=== PATIENT | female | born 1945 | race Caucasian/White ===

== ENCOUNTER → 2017-10-14 09:02 | Outpatient (CLI) | payer MEDICARE, BC, SELFPAY ==
--- NOTE | 2017-10-14 09:19 | XR_ITS ---
XR foot wt bearing RT 3V HISTORY: ITS.REASON: pain ORDERING PHYSICIAN: Risa Nicole DPM PATIENT AGE: 72 years COMPARISON: None FINDINGS: No fracture or dislocation. No lytic or blastic change. There is normal mineralization.. The joint spaces are well-preserved. No significant degenerative/arthritic changes. No erosive changes evident. Normal alignment. There is a small calcaneal spur at 6 mm IMPRESSION: Small calcaneal spur otherwise negative right foot
--- NOTE | 2017-10-14 09:19 | XR_ITS ---
XR foot wt bearing LT 3V HISTORY: ITS.REASON: pain ORDERING PHYSICIAN: Risa Nicole DPM PATIENT AGE: 72 years COMPARISON: None FINDINGS: No fracture or dislocation. No lytic or blastic change. There is normal mineralization.. The joint spaces are well-preserved. No significant degenerative/arthritic changes. No erosive changes evident. 4 mm calcaneal spur IMPRESSION: Small calcaneal spur otherwise negative left foot
== END ==
PROVIDERS: PCP Family Medicine; Visit Provider Podiatrist
DX: M79.672 Pain in left foot (principal); M72.2 Plantar fascial fibromatosis
CPT/HCPCS: 73630

== ENCOUNTER → 2017-11-16 14:37 | Outpatient (CLI) | payer MEDICARE, BC, SELFPAY ==
[2017-11-16 16:57] LABS: Free T4 (Free Thyroxine) 0.82 ng/dl (0.76-1.46); Free Thyroxine Index 1.9 ug/dL (5.93-13.13); T4 (Thyroxine) 5.8 ug/dl (4.7-13.3); Thyroid Stimulating Hormone 1.17 uIU/ml (0.358-3.740); Triiodothryronine (T3) Uptake 33 % (31-39)
== END ==
PROVIDERS: Visit Provider Otolaryngology
DX: E01.0 Iodine-deficiency related diffuse (endemic) goiter (principal)
CPT/HCPCS: 36415; 84436; 84439; 84443; 84479

== ENCOUNTER → 2017-11-20 15:03 | Outpatient (CLI) | payer MEDICARE, BC, SELFPAY ==
--- NOTE | 2017-11-20 15:04 | US_ITS ---
ULTRASOUND THYROID HISTORY: Thyroid enlarged PROCEDURE: Multiple sagittal and transverse ultrasound images of the thyroid. COMPARISON: None ----- FINDINGS: RIGHT LOBE: 4 cm length X 1.5 cm. x0.8 cm Right thyroid nodule Nodule A:Solid nodule mid right lobe measuring6.4 mm x4.7 mm Nodule B: Solid nodule lower right lobe 7.5 mm length x 5.8 mm x 5 mm AP Nodule C: LEFT LOBE: 3.9 cm x 1.4 cm.x0.9 cm No nodules evident on the left lobe: ISTHMUS:. Normal thickness and appearance measuring just over 2 mm. . no nodules at the isthmus ------ IMPRESSION: Thyroid gland upper normal in size bilaterally 2 small solid Right lobe thyroid nodules.. Left lobe and isthmus unremarkable
== END ==
PROVIDERS: PCP Family Medicine; Visit Provider Otolaryngology
DX: E04.1 Nontoxic single thyroid nodule (principal)
CPT/HCPCS: 76536

== ENCOUNTER 2017-12-15 14:30 | Outpatient (RCR) | payer MEDICARE, BC, SELFPAY | END 2017-12-16 14:31 | disposition home or self-care (01) | LOC: PT 14:30 | PROVIDERS: PCP Family Medicine; Visit Provider Podiatrist | DX: M72.2 Plantar fascial fibromatosis (principal); M79.672 Pain in left foot | CPT/HCPCS: 97010; 97014; 97033; 97035; 97110; 97140; 97163; G0283 ==

== ENCOUNTER → 2018-04-19 08:14 | Outpatient (CLI) | payer MEDICARE, BC, SELFPAY ==
[2018-04-19 10:11] LABS: Anion Gap 12.1 mEq/L (5-15); Blood Urea Nitrogen 12 mg/dL (7-18); Calcium 9.3 mg/dL (8.5-10.1); Carbon Dioxide 30 mmol/L (21.0-32.0); Chloride 106 mmol/L (98-107); Creatinine,Serum 0.81 mg/dL (0.55-1.02); Estimated Glomerular Filt Rate 70 ml/min (>60); GFR (African American) 85 ML/MIN (>60); Glucose 94 mg/dL (74-106); Potassium 5.1 mmoL/L (3.5-5.1); Sodium 143 mmol/L (136-145)
== END ==
PROVIDERS: PCP Family Medicine; Visit Provider Ophthalmology
DX: J45.909 Unspecified asthma, uncomplicated (principal); I10 Essential (primary) hypertension
CPT/HCPCS: 36415; 80048; 93005

== ENCOUNTER → 2018-05-24 13:49 | Outpatient (CLI) | payer MEDICARE, BC, SELFPAY ==
--- NOTE | 2018-05-24 13:51 | US_ITS ---
US thyroid HISTORY: Follow-up thyroid nodules ITS.REASON: goiter ORDERING PHYSICIAN: Boni Tilley MD PATIENT AGE: 72 years Comparison: 11/20/2017 FINDINGS: Right lobe: 3.9 x 1 x 1.8 cm Nodule A: 5 x 5 mm mid polar region unchanged. Nodule B: 7 x 6 mm isoechoic nodule lower pole unchanged Left lobe: 4.1 x 1.0 x 1.5 cm Isthmus: Unremarkable IMPRESSION: No change right-sided thyroid nodule with low level of suspicion for malignancy
== END ==
PROVIDERS: PCP Family Medicine; Visit Provider Otolaryngology
DX: E04.9 Nontoxic goiter, unspecified (principal)
CPT/HCPCS: 76536

== ENCOUNTER → 2018-08-31 13:44 | Outpatient (POV) | payer MEDICARE, BC, SELFPAY | PROVIDERS: Visit Provider Dermatology | DX: Z00.00 Encounter for general adult medical examination without abnormal findings (principal) ==

== ENCOUNTER → 2018-09-21 09:05 | Outpatient (POV) | payer MEDICARE, BC, SELFPAY | PROVIDERS: Visit Provider Dermatology | DX: Z00.00 Encounter for general adult medical examination without abnormal findings (principal) ==

== ENCOUNTER → 2019-01-11 09:41 | Outpatient (POV) | payer MEDICARE, BC, SELFPAY | PROVIDERS: Visit Provider Dermatology | DX: Z00.00 Encounter for general adult medical examination without abnormal findings (principal) ==

== ENCOUNTER → 2019-03-31 09:57 | Outpatient (CLI) | payer MEDICARE, BC, SELFPAY ==
--- NOTE | 2019-03-31 10:14 | XR_ITS ---
PROCEDURE: XR DEXA AXIAL SKELETON CLINICAL HISTORY: POST MENOPAUSAL,OSTEOPENIA COMPARISON: No exams were available for comparison FINDINGS: Lumbar spine density not obtained due to metallic hardware. Radius 33 percent is 0.745 grams/centimeters sq with a T-score -1.6. Left femoral neck density is 0.771 grams/centimeters sq with T-score -1 point. IMPRESSION: Osteopenia with moderate fracture risk. Treatment advised. Suggest follow-up exam March 2021 Dictated by: Dk Arteaga MD 03/31/2019 15:49 Electronically signed by Dk Arteaga MD in [facility] 03/31/2019 15:49
== END ==
PROVIDERS: PCP Family Medicine; Visit Provider Family Medicine
DX: Z78.0 Asymptomatic menopausal state (principal); M85.80 Other specified disorders of bone density and structure, unspecified site
CPT/HCPCS: 77080

== ENCOUNTER → 2019-03-31 09:59 | Outpatient (CLI) | payer SELFPAY | PROVIDERS: PCP Family Medicine; Visit Provider Family Medicine | DX: Z13.6 Encounter for screening for cardiovascular disorders (principal) ==

== ENCOUNTER → 2019-04-01 07:16 | Outpatient (CLI) | payer SELFPAY ==
--- NOTE | 2019-04-01 07:17 | CT_ITS ---
PROCEDURE: CT HEART W CALCIUM SCORE CLINICAL HISTORY: FX HX HEART DISEASE, CALCIUM SCREENING COMPARISON: No exams were available for comparison TECHNIQUE: Axial images obtained with sagittal and coronal reformats. All CT scans at the facility use one or more dose reduction, viz: automated exposure control, ma/kV adjustment per patient size (including targeted exams where dose is matched to indication, i.e. head), or iterative reconstruction technique. FINDINGS: Coronary artery calcium score is 2 minimal calcific plaque burden and low cardiovascular disease risk. Incidental findings include mild thickening of the pericardium posteriorly suggesting a small pericardial effusion. There is evidence of old granulomatous disease. There are atelectatic changes lung bases. IMPRESSION: Minimal calcific plaque burden with low cardiovascular disease risk Small pericardial effusion Dictated by: Dk Arteaga MD 04/01/2019 17:49 Electronically signed by Dk Arteaga MD in [facility] 04/01/2019 17:49
== END ==
PROVIDERS: PCP Family Medicine; Visit Provider Internal Medicine Cardiovascular Disease
DX: Z13.6 Encounter for screening for cardiovascular disorders (principal)
CPT/HCPCS: 75571

== ENCOUNTER → 2019-09-08 10:02 | Outpatient (CLI) | payer MEDICARE, BC, SELFPAY ==
--- NOTE | 2019-09-08 10:07 | XR_ITS ---
PROCEDURE: XR RIBS RT MIN 3V W CXR1V CLINICAL INDICATION: RT RIB PAIN COMPARISON: No exams were available for comparison FINDINGS: Frontal view of the chest shows no acute finding. Multiple views of the right ribs are obtained. There is a curvilinear lucency in the lateral aspect of the right 10th rib suggesting a nondisplaced fracture. No other significant anomalies are evident. IMPRESSION: No acute findings. Possible nondisplaced right 10th rib fracture Dictated by: Dk Arteaga MD 09/08/2019 11:42 Electronically signed by Dk Arteaga MD in [facility] 09/08/2019 11:42
== END ==
PROVIDERS: PCP Family Medicine; Visit Provider Family Medicine
DX: R07.81 Pleurodynia (principal)
CPT/HCPCS: 71101

== ENCOUNTER → 2020-12-07 07:36 | Outpatient (CLI) | payer MEDICARE, BC, SELFPAY ==
--- NOTE | 2020-12-07 07:44 | MM_ITS ---
PROCEDURE: MM DIG SCREENING MAMM BI W/CAD Digital Breast Tomosynthesis Included CLINICAL INDICATION: SCREENING COMPARISON: MG DMSB DIG MAMM-SCREEN JAMAAL from 06/08/2013 MG DMSB DIG MAMM-SCREEN JAMAAL from 07/07/2014 MG DMSB DIG MAMM-SCREEN JAMAAL from 08/31/2015 MG DMSB DIG MAMM-SCREEN JAMAAL W/CAD from 10/01/2016 TECHNIQUE: Standard CC and MLO images and 3D Tomosynthesis was obtained. R2 CAD reviewed. FINDINGS: Average fibroglandular tissue. The right breast has an unremarkable appearance. Small cluster of calcifications are noted in the axillary portion of the left breast which appear benign. These are probably benign. There is a cluster calcifications in the central aspect of the left breast. These are not significantly changed. No malignant appearing mass or malignant-appearing microcalcification. IMPRESSION: Benign findings. BI-RAD Category: 2 Benign Finding FOLLOW-UP: 1 YR 1 Year Follow-up (A letter has been sent to the patient regarding results of the study.) Dictated by: Dk Arteaga MD 12/14/2020 16:32 Dk Arteaga MD in [facility] 12/14/2020 16:32
== END ==
PROVIDERS: PCP Family Medicine; Visit Provider Family Medicine
DX: Z12.31 Encounter for screening mammogram for malignant neoplasm of breast (principal)
CPT/HCPCS: 77063; 77067

== ENCOUNTER → 2021-01-11 15:07 | Outpatient (CLI) | payer MEDICARE, BC, SELFPAY ==
--- NOTE | 2021-01-11 15:14 | XR_ITS ---
PROCEDURE: XR KUB CLINICAL INDICATION: kidney stone COMPARISON: No exams were available for comparison FINDINGS: Gas pattern-The bowel gas pattern is unremarkable. No obvious obstruction. Calcifications-there are 2 small calcifications just inferior to the transverse process of L1 near the expected location of the right renal pelvis. The largest measures approximately 3 mm. Couple of loops air-filled small bowel partially obscure the left renal shadow. There are no suspicious calcifications seen along the course of either ureter. Metallic brackets and pedicle screws are seen fusing L4 and L5.. IMPRESSION: Possible tiny calcifications within the right renal pelvis Dictated by: Dr. Maximino Grace MD 01/11/2021 15:47 Dr. Maximino Grace MD in [facility] 01/11/2021 15:47
== END ==
PROVIDERS: PCP Family Medicine; Visit Provider Urology
DX: N20.0 Calculus of kidney (principal)
CPT/HCPCS: 74018

== ENCOUNTER → 2021-01-15 12:53 | Outpatient (CLI) | payer MEDICARE, BC, SELFPAY ==
--- NOTE | 2021-01-15 12:57 | XR_ITS ---
PROCEDURE: XR KUB CLINICAL INDICATION: ureteral stone COMPARISON: CR XR KUB from 01/11/2021 FINDINGS: Small bilateral renal calculi are present measuring up to 4 mm on both sides. There are multiple pelvic calcifications which are felt to be due to phleboliths. 4 mm calculus once again noted in the region of the right renal pelvis. To the right the L3-L4 interspace there is a small 3 mm density which could be due to small ureteral stone. Postsurgical changes are present at L4-5. IMPRESSION: No change bilateral nephrolithiasis. Possible right mid ureteral stone. Dictated by: Dk Arteaga MD 01/15/2021 13:35 Dk Arteaga MD in [facility] 01/15/2021 13:35
--- NOTE | 2021-01-15 14:09 | CT_ITS ---
PROCEDURE: CT ABDOMEN PELVIS WO CON CLINICAL INDICATION: ureteral stone Follow-up ureteral stent COMPARISON: No exams were available for comparison TECHNIQUE: Axial images obtained with sagittal and coronal reformats. All CT scans at the facility use one or more dose reduction, viz: automated exposure control, ma/kV adjustment per patient size (including targeted exams where dose is matched to indication, i.e. head), or iterative reconstruction technique. FINDINGS: LOWER THORAX: 4 mm noncalcified nodules present in the right posterior costophrenic sulcus medially. Minimal atelectatic or fibrotic changes are present in the lung bases. There is mild pericardial thickening ABDOMEN & PELVIS: There is a well-circumscribed area of decreased density involving the left hepatic lobe segment 4b which may represent a hepatic cyst. There is mild generalized fatty liver. Gallbladder wall appears slightly thickened with some areas of slight decreased density in the gallbladder which could be due to stones. The spleen, adrenal glands, pancreas, and right kidney have an unremarkable appearance. There is some coarse calcification along the posterior aspect of the common bile duct suggesting small partially calcified lymph nodes. There is a 5 mm stone in the upper and lower pole of the left kidney. 15 mm area of decreased attenuation in the mid aspect of the left kidney suggesting a cyst. There is a 6 mm thin calcific density at the right ureterovesical junction with minimal ectasia of the distal aspect of the right ureter. No intestinal obstruction or free air. Prior appendectomy. Mild thickening of the colon which may only be due to nondistention versus mild colitis. Please correlate with clinical parameters. There has been a prior hysterectomy. Postsurgical changes noted of the lower lumbar spine at L4-5 with inter pedicular screws. IMPRESSION: 6 x 2 mm right ureterovesical junction stone with only minimal ectasia of the right ureter. Left nephrolithiasis. 1.9 cm hypodensity left hepatic lobe segment 4B which may represent a hepatic cyst Dictated by: Dk Arteaga MD 01/15/2021 15:53 Dk Arteaga MD in [place] 01/15/2021 15:53
== END ==
PROVIDERS: PCP Family Medicine; Visit Provider Urology
DX: N20.1 Calculus of ureter (principal)
CPT/HCPCS: 74018; 74176

== ENCOUNTER → 2021-06-07 08:45 | Outpatient (CLI) | payer MEDICARE, BC, SELFPAY ==
--- NOTE | 2021-06-07 08:48 | XR_ITS ---
FINAL REPORT TECHNIQUE: Bone densitometry calculations of the left forearm and left hip were obtained. CLINICAL HISTORY: . post menopausal FINDINGS: Using the left forearm the bone mineral density of the distal 3rd of the left radius is 0.564 g/cm2, corresponding to T-score of -2.2. Using the left hip, the bone mineral density of the femoral neck is 0.626 g/cm2, corresponding to a T-score of -2.0. NOTE: T-score: Standard deviation compared with peak bone mass of young adult mean. *Following the recommendations of the International Society of Bone densitometry, classification of hip BMD is based on the lower of two T-scores; total hip or femoral neck. IMPRESSION: Diminished bone mineral density of the left forearm and left hip consistent with osteopenia. Reviewed, Interpreted and Dictated by Conor Moran MD Transcribed by Carmen Chavez Authenticated by Conor Moran MD on 06/07/2021 10:23:43 AM [facility]
== END ==
PROVIDERS: PCP Family Medicine; Visit Provider Family Medicine
DX: M81.0 Age-related osteoporosis without current pathological fracture (principal)
CPT/HCPCS: 77080

== ENCOUNTER → 2022-02-14 08:35 | Outpatient (CLI) | payer MEDICARE, BC, SELFPAY ==
[2022-02-14 08:50] LABS: MANUAL DIFFERENTIAL MANUAL DIFFERENTIAL (MANUAL DIFF); Microscopic, Urine URINE MICROSCOPIC (MICROSCOPIC)
[2022-02-14 09:38] LABS: Appearance,Urine CLEAR (Clear); Bilirubin,Urine Negative (Negative); Blood, Urine 3+ (Negative); Color,Urine YELLOW (Yellow); Glucose,Urine (UA) Negative (Negative); Ketones,Urine Negative (Negative); Leukocyte Esterase,Urine Negative (Negative); Nitrate,Urine Negative (Negative); Protein,Urine Negative (Negative); Specific Gravity, Urine 1.025 (1.005-1.030); Urobilinogen,Urine 0.2 EU/dl (0.2)
[2022-02-14 10:03] LABS: Basophils % 0.5 % (0.1-2.0); Eosinophils # 0.1 K/mm3 (0.0-0.4); Lymphocytes # 1.5 K/mm3 (0.7-4.5); Lymphocytes % 22.2 % (10-50); Mean Corpuscular HGB Conc 31.2 g/dL (31.8-35.4); Mean Corpuscular Hemoglobin 30.6 pg (27.0-31.2); Mean Corpuscular Volume 98.2 fl (81-99); Mean Platelet Volume 8.2 fl (7.4-10.4); Monocytes # 0.3 K/mm3 (0.1-1.0); Monocytes % 4.5 % (1.7-9.3); Neutrophils # 4.7 K/mm3 (1.8-7.8); Neutrophils % 70.8 % (37.0-80.0); Platelet Count 250 K/mm3 (142-424); Red Blood Count 4.89 M/mm3 (4.20-5.40); Red Cell Distribution Width 12.8 % (11.5-17.5); White Blood Count 6.6 K/mm3 (4.8-10.8)
[2022-02-14 10:13] LABS: Alanine Aminotransferase 22 U/L (12-78); Albumin Level 4.2 g/dl (3.5-5.0); Albumin/Globulin Ratio 1.8 (1.1-1.8); Alkaline Phosphatase 78 U/L (38-126); Anion Gap 13.3 mEq/L (5-15); Aspartate Amino Transferase 27 U/L (14-36); Bilirubin,Total 0.7 mg/dl (0.2-1.3); Blood Urea Nitrogen 15 mg/dl (7-17); Calcium 9.3 mg/dl (8.4-10.2); Carbon Dioxide 27 mmol/L (22.0-30.0); Chloride 103 mmol/L (98-107); Estimated Glomerular Filt Rate 70 ml/min (>60); GFR (African American) 85 ML/MIN (>60); Globulin 2.3 g/dL (1.3-3.2); Glucose 98 mg/dl (74-100); HDL Cholesterol 93 mg/dl (40-60); Potassium 4.3 mmoL/L (3.5-5.1); Sodium 139 mmol/L (136-145); Total Protein,Serum 6.5 g/dl (6.3-8.2); Uric Acid 5.4 mg/dl (2.5-6.2)
[2022-02-14 10:14] LABS: Bacteria,Urine Trace /lpf
[2022-02-14 10:27] LABS: Direct LDL Cholesterol 79.74 mg/dL (100-129)
[2022-02-14 10:39] LABS: Anisocytosis 1+; Lymphocytes % 17 % (10-50); Macrocytosis 1+; Monocytes % 1 % (2-9); Neutrophils % 82 % (42-76); Ovalocytes 1+; Platelet Estimate Normal; Total Cells Counted 100
[2022-02-14 10:40] LABS: Erythrocyte Sedimentation Rate 2 mm/hr (0-30)
[2022-02-14 11:06] LABS: Vitamin B12 405 pg/mL (239-931)
[2022-02-14 12:05] LABS: Cholesterol 185 mg/dl (140-200); Triglycerides 91 mg/dl (30-150); VLDL Cholesterol 18 mg/dL (0-40)
[2022-02-15 09:17] LABS: RA Latex Turbid. <10.0 IU/mL (<14.0)
[2022-02-19 10:28] LABS: Antinuclear Antibodies, IFA Negative (.)
[2022-02-21 20:28] LABS: 1,25 Dihydroxy Vitamin D 47 pg/mL (.); 1,25-Dihydroxy, Vitamin D-2 <10 pg/mL (.); 1,25-Dihydroxy, Vitamin D-3 46 pg/mL (.)
== END ==
PROVIDERS: PCP Family Medicine; Visit Provider Family Medicine
DX: I10 Essential (primary) hypertension (principal); M19.90 Unspecified osteoarthritis, unspecified site; R53.83 Other fatigue; F32.A Depression, unspecified; M85.80 Other specified disorders of bone density and structure, unspecified site
CPT/HCPCS: 36415; 80053; 80061; 81001; 82607; 82652; 84443; 84550; 85007; 85014; 85018; 85048; 85049; 85651; 86038; 86431

== ENCOUNTER → 2022-02-24 13:12 | Outpatient (CLI) | payer MEDICARE, BC, SELFPAY ==
--- NOTE | 2022-02-24 13:13 | MM_ITS ---
PROCEDURE INFORMATION: Exam: MG Bilateral Screening 3D Mammography Exam date and time: 02/24/2022 1:07 PM Age: 76 years old Clinical indication: Screening examination. Her mother had breast cancer in her 60s. TECHNIQUE: Imaging protocol: Bilateral Screening tomosynthesis and 2D mammography including computer-aided detection (CAD) when performed. COMPARISON: 1. MG MM DIG SCREENING MAMM BI W/CAD 12/07/2020 8:00 AM 2. MG DMSB DIG MAMM-SCREEN JAMAAL W/CAD 10/01/2016 9:51 AM 3. MG DMSB DIG MAMM-SCREEN JAMAAL 08/31/2015 10:12 AM FINDINGS: MAMMOGRAPHY: Breast composition: There are scattered areas of fibroglandular density. Mass: None. Architectural distortion: None. Calcifications: No suspicious calcifications. Asymmetric density: None. Skin thickening: None. Axillary adenopathy: None. IMPRESSION: No mammographic evidence of malignancy. Annual screening is recommended unless otherwise clinically indicated. ASSESSMENT: BI-RADS Category 1: Negative
== END ==
PROVIDERS: PCP Family Medicine; Visit Provider Family Medicine
DX: Z12.31 Encounter for screening mammogram for malignant neoplasm of breast (principal)
CPT/HCPCS: 77063; 77067

== ENCOUNTER → 2022-05-28 20:04 | Outpatient (CLI) | payer MEDICARE, BC, SELFPAY ==
[2022-06-02 17:51] LABS: Occult Blood,Stool Negative (Negative)
== END ==
PROVIDERS: PCP Family Medicine; Visit Provider Family Medicine
DX: Z12.11 Encounter for screening for malignant neoplasm of colon (principal); Z80.0 Family history of malignant neoplasm of digestive organs
CPT/HCPCS: 82272; G0328

== ENCOUNTER → 2022-05-30 07:17 | Outpatient (CLI) | payer SELFPAY ==
--- NOTE | 2022-05-30 07:31 | CT_ITS ---
FINAL REPORT TECHNIQUE: Thin-section axial images were obtained through the heart and coronary arteries per CT coronary calcium score protocol. The study was performed with techniques to keep radiation doses as low as reasonably achievable (ALARA). Individual dose reduction technique using automated exposure control adjustment of mA and/or kv according to the patient's size were employed. CLINICAL HISTORY: calcium score COMPARISON: none FINDINGS: On the axial images, there is calcification within the left anterior descending coronary artery. This gives a coronary artery calcium score of 7.75 based on the Agatston scale. The coronary artery calcium score places the patient within the 14th percentile based on age and gender. The heart size is normal. There is a small pericardial effusion. No pleural effusion. Limited evaluation of the lungs reveals no suspicious nodule. IMPRESSION: Calcium score of 7.75 which places the patient at the 14th percentile for gender and age. Reviewed, Interpreted and Dictated by Kinsey Salazar MD Transcribed by Nancy Mcfarland Authenticated and [facility]
== END ==
PROVIDERS: PCP Family Medicine; Visit Provider Internal Medicine Cardiovascular Disease
DX: R94.31 Abnormal electrocardiogram [ECG] [EKG] (principal); R06.00 Dyspnea, unspecified; R06.83 Snoring; R53.83 Other fatigue
CPT/HCPCS: 75571

== ENCOUNTER → 2022-05-30 07:24 | Outpatient (CLI) | payer MEDICARE, BC, SELFPAY ==
--- NOTE | 2022-05-30 07:25 | CA_ITS ---
APPROVED REPORT EXAM: Comprehensive 2D, Doppler, and color-flow Echocardiogram Bundle Tier And Labeler: Dulce Russo CRT Ht: 5 ft 5 in Wt: 172lbs BSA: 1.86 BP: 155/68 mmHg Indications: Abnormal ECG, Shortness of Breath, Palpitations, Fatigue, Hypertension/HDD 2D Dimensions LVOT 1.70 cm (M/F) 1.5-2.5 M-Mode Dimensions RVDd 2.07 cm (0.9-2.6) LA Diam 3.84 cm (1.9-4.0) LVDd 4.18 cm (3.5-5.7) Ao Diam 3.32 cm (2.0-3.7) LVDs 2.61 cm (3.5-5.7) IVSd 1.21 cm (0.6-1.1) PWd 0.68 cm (0.6-1.1) EF (Teich) 68.10% FS 37.60% EDV (Teich) 77.70 mL TAPSE 1.69 (<1.7) ESV (Teich) 24.80 mL LV Diastology MED E' 7.50 (< 7 cm/sec) MED A' 9.80 cm/s LAT E' 83.30 (<10 cm/sec) LAT A' 72.50 cm/s Aortic Valve AI PHT 503.00 ms Pulmonary Valve PV Peak Velocity 140.00 (50-150 cm/s) Tricuspid Valve TR P. Velocity 210.00 cm/s RAP Estimate 10.00 mmHg RVSP 27.70 mmHg Left Ventricle Left atrium is mildly enlarged, left ventricle is normal size, mild concentric left ventricular hypertrophy, estimated ejection fraction 55% with no regional wall motion abnormality. Grade 1 diastolic dysfunction seen without tissue Doppler evidence of raise left atrial pressure. Right Ventricle Right atrium and right ventricle are normal size and contractility. Aortic Valve Aortic valve is minimally thickened and fibrosed there is no aortic stenosis, there is trace aortic insufficiency. Mitral Valve Mitral valve grossly normal, there is trace mitral regurgitation. Tricuspid Valve Tricuspid grossly normal, there is trace tricuspid regurgitation, tricuspid regurgitation jet velocity is inadequate for calculation of the right ventricular systolic pressure. Pulmonic Valve Pulmonic valve is poorly visualized. Great Vessels Aortic root is normal size. Inferior vena cava is poorly visualized. Pericardium Trivial pericardial effusion noted. Conclusion 1. Normal left ventricular size, mild concentric left ventricular hypertrophy, estimated ejection fraction 55% with no regional wall motion abnormality, grade 1 diastolic dysfunction seen without tissue Doppler evidence of raise left atrial pressure. 2. Trace aortic, mitral and tricuspid regurgitation. 3. Trivial pericardial effusion noted. 4. Inferior vena cava is poorly visualized. Electronically signed by : Anjel Costa MD 05/30/2022 17:40:06
[2022-05-30 11:00] LABS: Anion Gap 10.3 mEq/L (5-15); Blood Urea Nitrogen 17 mg/dl (7-17); Carbon Dioxide 29 mmol/L (22.0-30.0); Chloride 103 mmol/L (98-107); Estimated Glomerular Filt Rate 70 ml/min (>60); GFR (African American) 85 ML/MIN (>60); Glucose 87 mg/dl (74-100); Potassium 4.3 mmoL/L (3.5-5.1); Sodium 138 mmol/L (136-145)
[2022-05-30 11:10] LABS: NT Pro Brain Natriuretic Pep. 179 pg/mL (0-450)
== END ==
PROVIDERS: PCP Family Medicine; Visit Provider Internal Medicine Cardiovascular Disease
DX: I10 Essential (primary) hypertension (principal); R06.00 Dyspnea, unspecified; R06.83 Snoring; R53.83 Other fatigue; R93.1 Abnormal findings on diagnostic imaging of heart and coronary circulation; R94.31 Abnormal electrocardiogram [ECG] [EKG]
CPT/HCPCS: 36415; 80048; 83880; 93306

== ENCOUNTER → 2022-05-30 20:07 | Outpatient (CLI) | payer MEDICARE, BC, SELFPAY ==
[2022-06-02 17:51] LABS: Occult Blood,Stool Negative (Negative)
== END ==
PROVIDERS: PCP Family Medicine; Visit Provider Family Medicine
DX: Z12.11 Encounter for screening for malignant neoplasm of colon (principal); Z80.0 Family history of malignant neoplasm of digestive organs
CPT/HCPCS: 82272; G0328

== ENCOUNTER → 2022-06-02 17:55 | Outpatient (CLI) | payer MEDICARE, BC, SELFPAY ==
[2022-06-02 17:50] LABS: Occult Blood,Stool Negative (Negative)
== END ==
PROVIDERS: Visit Provider Family Medicine
DX: Z12.11 Encounter for screening for malignant neoplasm of colon (principal); Z80.0 Family history of malignant neoplasm of digestive organs
CPT/HCPCS: 82272; G0328

== ENCOUNTER → 2022-06-09 13:07 | Outpatient (CLI) | payer MEDICARE, BC, SELFPAY | PROVIDERS: PCP Family Medicine; Visit Provider Internal Medicine Cardiovascular Disease | DX: G47.30 Sleep apnea, unspecified (principal); R06.00 Dyspnea, unspecified; R53.83 Other fatigue; R94.31 Abnormal electrocardiogram [ECG] [EKG] | CPT/HCPCS: G0399 ==

== ENCOUNTER → 2022-08-21 10:09 | Outpatient (CLI) | payer MEDICARE, BC, SELFPAY ==
[2022-08-21 11:15] LABS: Basophils % 0.6 % (0.1-2.0); Eosinophils # 0.2 K/mm3 (0.0-0.4); Eosinophils % 2.1 % (0.1-12.0); Hematocrit 44.4 % (37.0-47.0); Hemoglobin 14.7 g/dL (12.2-16.2); Lymphocytes # 1.7 K/mm3 (0.7-4.5); Lymphocytes % 22.9 % (10-50); Mean Corpuscular HGB Conc 33.1 g/dL (31.8-35.4); Mean Corpuscular Hemoglobin 31.7 pg (27.0-31.2); Mean Corpuscular Volume 95.8 fl (81-99); Monocytes # 0.3 K/mm3 (0.1-1.0); Neutrophils # 5.2 K/mm3 (1.8-7.8); Neutrophils % 70.3 % (37.0-80.0); Platelet Count 205 K/mm3 (142-424); Red Blood Count 4.64 M/mm3 (4.20-5.40); Red Cell Distribution Width 13.3 % (11.5-17.5); White Blood Count 7.4 K/mm3 (4.8-10.8)
[2022-08-21 11:33] LABS: Alanine Aminotransferase 25 U/L (12-78); Albumin/Globulin Ratio 1.8 (1.1-1.8); Alkaline Phosphatase 63 U/L (38-126); Aspartate Amino Transferase 29 U/L (14-36); Bilirubin,Total 1.3 mg/dl (0.2-1.3); Blood Urea Nitrogen 20 mg/dl (7-17); Calcium 8.9 mg/dl (8.4-10.2); Carbon Dioxide 30 mmol/L (22.0-30.0); Chloride 102 mmol/L (98-107); Chol/HDL Ratio 1.5 (1-3.5); Cholesterol 121 mg/dl (140-200); Estimated Glomerular Filt Rate 61 ml/min (>60); GFR (African American) 74 ML/MIN (>60); Globulin 2.2 g/dL (1.3-3.2); Glucose 96 mg/dl (74-100); HDL Cholesterol 82 mg/dl (40-60); Sodium 134 mmol/L (136-145); Total Protein,Serum 6.2 g/dl (6.3-8.2); Triglycerides 66 mg/dl (30-150); VLDL Cholesterol 13 mg/dL (0-40)
[2022-08-21 11:44] LABS: Direct LDL Cholesterol 30.04 mg/dL (100-129)
[2022-08-21 11:51] LABS: 25-OH Vitamin D, Total 38.6 ng/mL (30-100)
[2022-08-21 12:03] LABS: Thyroid Stimulating Hormone 1.18 uIU/mL (0.465-4.68)
[2022-08-21 12:22] LABS: Vitamin B12 453 pg/mL (239-931)
== END ==
PROVIDERS: PCP Family Medicine; Visit Provider Family Medicine
DX: I10 Essential (primary) hypertension (principal); R93.1 Abnormal findings on diagnostic imaging of heart and coronary circulation; M85.80 Other specified disorders of bone density and structure, unspecified site; R53.83 Other fatigue
CPT/HCPCS: 36415; 80053; 80061; 82306; 82607; 84443; 85025

== ENCOUNTER → 2023-01-13 09:50 | Outpatient (CLI) | payer MEDICARE, BC, SELFPAY ==
--- NOTE | 2023-01-13 10:02 | ECG_ITS ---
APPROVED REPORT Exam: Resting ECG HR:76 bpm ECG Measurements Heart Rate 76 AXES NH 128 P 47 QRSd 84 QRS 9 QT 367 T 47 QTc 398 Conclusion SINUS RHYTHM LOW QRS VOLTAGE IN PRECORDIAL LEADS [QRS DEFLECTION < 1.0 mV IN CHEST LEADS] NONSPECIFIC ST & T-WAVE ABNORMALITY BORDERLINE ECG UNCONFIRMED REPORT Electronically signed by : John Pfeiffer MD 01/13/2023 19:54:46
[2023-01-13 10:47] LABS: Basophils % 0.4 % (0.1-2.0); Eosinophils # 0.1 K/mm3 (0.0-0.4); Eosinophils % 1.8 % (0.1-12.0); Hematocrit 45.5 % (37.0-47.0); Hemoglobin 15.2 g/dL (12.2-16.2); Lymphocytes # 1.5 K/mm3 (0.7-4.5); Lymphocytes % 20.3 % (10-50); Mean Corpuscular HGB Conc 33.4 g/dL (31.8-35.4); Mean Corpuscular Hemoglobin 31.9 pg (27.0-31.2); Mean Corpuscular Volume 95.5 fl (81-99); Mean Platelet Volume 8.8 fl (7.4-10.4); Monocytes # 0.4 K/mm3 (0.1-1.0); Monocytes % 5.1 % (1.7-9.3); Neutrophils # 5.2 K/mm3 (1.8-7.8); Neutrophils % 72.5 % (37.0-80.0); Platelet Count 212 K/mm3 (142-424); Red Blood Count 4.76 M/mm3 (4.20-5.40); Red Cell Distribution Width 13.1 % (11.5-17.5); White Blood Count 7.2 K/mm3 (4.8-10.8)
[2023-01-13 11:17] LABS: Alanine Aminotransferase 33 U/L (12-78); Albumin Level 4.2 g/dl (3.5-5.0); Albumin/Globulin Ratio 1.8 (1.1-1.8); Alkaline Phosphatase 71 U/L (38-126); Anion Gap 11.2 mEq/L (5-15); Aspartate Amino Transferase 33 U/L (14-36); Bilirubin,Total 1.2 mg/dl (0.2-1.3); Blood Urea Nitrogen 13 mg/dl (7-17); Calcium 9.6 mg/dl (8.4-10.2); Carbon Dioxide 29 mmol/L (22.0-30.0); Chloride 102 mmol/L (98-107); Estimated Glomerular Filt Rate 70 ml/min (>60); GFR (African American) 85 ML/MIN (>60); Globulin 2.3 g/dL (1.3-3.2); Glucose 98 mg/dl (74-100); Potassium 4.2 mmoL/L (3.5-5.1); Sodium 138 mmol/L (136-145); Total Protein,Serum 6.5 g/dl (6.3-8.2)
== END ==
PROVIDERS: PCP Internal Medicine; Visit Provider Otolaryngology
DX: D10.1 Benign neoplasm of tongue (principal); F32.A Depression, unspecified; Z01.818 Encounter for other preprocedural examination
CPT/HCPCS: 36415; 80053; 85025; 93005

== ENCOUNTER 2023-01-19 12:03 | Day surgery (SDC) | payer MEDICARE, BC, SELFPAY ==
[2023-01-14 16:39] VITALS: BMI 29.2
[2023-01-19] VITALS (10 sets, daily range): BP systolic 121–160; BP diastolic 62–88; PULSE 72–90; RESP 16–18; TEMP 36.1–36.6; O2SAT 93–100
--- NOTE | 2023-01-19 13:25 | EXP.ANES.CKL ---
[facility] Disclaimer: The information contained in this section may have been updated after the patient was seen, as this information can be updated by other users. 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 As it has increased in size and become somewhat worrisome, we will remove this under anesthesia with pathologic confirmation. History of nephrolithiasis Normal coronary angiogram 1999 Screening for cholesterol level Surgical History H/O carpal tunnel repair H/O hysterectomy for benign disease Total History of appendectomy History of cataract surgery History of plastic surgery Brow lift Previous back surgery fusion Family History Father Heart attack Stroke Mother FH: colon cancer in first degree relative <60 years old Alzheimer disease Breast cancer Social History (Updated 01/19/23 @ 12:31 by Radha Jackson RN) Smoking Status: Never smoker alcohol intake: current substance use type: denies use current occupational status: retired Travel in the last 8 weeks: None household members: none housing: house marital status: caffeine: Yes [facility] Anesthesia Checklist Patient Identification Patient Identification: Verbal (Name & ) Structural Data Admitted From: Home Planned Operative Procedure/s: excision tongue neoplasm Consent for Planned Operative Procedure(s) Verified: Yes NPO Status Verified Time NPO: 00:00 Additional verifications Anesthesia Reactions: No Hx Blood Transfusions: No Blood Transfusion Reaction: No Airway Assessment Mallampati Score:: Class I C-Spine Mobility Assessed: Yes TMJ Mobility Assessed: Yes Dentition: Good Dentition Neurological Assessment Level of Consciousness: Awake, Alert and Appropriate Anesthesia Plan Anesthesia Risk discussed: Yes Anesthesia Plan: Verified ASA Class: II Anesthesia Type: General
--- NOTE | 2023-01-19 14:41 | P.OP_ITS ---
Date of procedure: 01/19/23 Pre-op Diagnosis:: Left lateral tongue lesion Post-op Diagnosis:: Same?pathology pending Procedure performed:: Wide local excision left lateral tongue lesion Surgeon:: Everardo Varma III, MD [employer] OPERATOR:: Rickey Augustine Anesthesia: GETA Estimated blood loss (mL): 5 Operative findings:: Fibromatous lesion left lateral tongue Operative note:: The patient was brought to the operating placed under general endotracheal anesthesia. I applied topical Marcaine without epinephrine on the lateral surface of the tongue and then injected half percent Marcaine with epinephrine into the subcutaneous tissue around the tongue lesion. The measured approximately .8 cm in greatest diameter and was exophytic in nature. I made a wide local excision around this taking some deep tissue to ensure that it was to tally removed. The incision was approximate 1 cm x 1 cm. The base was cauterized with the bipolar cautery. I then approximated the wound edges with 2 interrupted 5-0 Monocryl sutures. The patient was awakened in the operating room and taken to the recovery room in good condition. Condition: stable Disposition: PACU Complications:: none
--- NOTE | 2023-01-19 14:49 | P.PNANES_ITS ---
[facility] Anesthesia Record Part I Anesthesia Record I Intake, IV Amount: 300 Hydration: Adequate Estimated blood loss (mL): 1 Urine output (mL): 0 Blood Products used (#): none Blood Pressure: 151/83 SaO2: 93 Pulse Rate: 90 Airway Patency: Patent Respiratory Rate: 16 Temperature: 97 F Patient is:: Drowsy and Stable Stable to PACU at:: 14:40
--- NOTE | 2023-01-19 16:26 | EXP.ANES.II ---
[facility] Anesthesia Record Part II Anesthesia Record Part II Discharge Time: 15:10 Destination: Surgical Day Care (OP Surgery) PACU nurse assessment reviewed?: Yes Patient Condition:: Good Anesthesia Complications:: None Swallowing reflex intact?: Yes Airway Patency: Patent Cyanosis?: No Blood Pressure: 160/87 SaO2: 95 Respiratory Rate: 18 Pulse Rate: 74 Temperature: 97.4 F Mental Status: Alert & Oriented Pain level:: 0 Nausea and/or vomitting:: None Intake, IV Amount: 0 Hydration: Adequate
== END 2023-01-19 15:35 | disposition home or self-care (01) ==
PROVIDERS: PCP Internal Medicine; Visit Provider Otolaryngology
DX: D10.1 Benign neoplasm of tongue (principal)
CPT/HCPCS: 41112; 88305; J2405

== ENCOUNTER 2023-02-06 17:28 | Emergency (ER) | payer MEDICARE, BC, SELFPAY ==
[2023-02-06 17:30] VITALS: BP 163/110; PULSE 85; RESP 16; TEMP 36.6; O2SAT 98; BMI 29.5
[2023-02-06 18:01] LABS: Basophils # 0.1 K/mm3 (0-0.2); Basophils % 0.6 % (0.1-2.0); Eosinophils # 0.1 K/mm3 (0.0-0.4); Eosinophils % 1.1 % (0.1-12.0); Hematocrit 44.5 % (37.0-47.0); Hemoglobin 14.5 g/dL (12.2-16.2); Lymphocytes # 1.7 K/mm3 (0.7-4.5); Lymphocytes % 18.5 % (10-50); Mean Corpuscular HGB Conc 32.5 g/dL (31.8-35.4); Mean Corpuscular Hemoglobin 31.3 pg (27.0-31.2); Mean Corpuscular Volume 96.4 fl (81-99); Mean Platelet Volume 9.2 fl (7.4-10.4); Monocytes # 0.4 K/mm3 (0.1-1.0); Monocytes % 4.5 % (1.7-9.3); Neutrophils # 7.1 K/mm3 (1.8-7.8); Neutrophils % 75.4 % (37.0-80.0); Platelet Count 241 K/mm3 (142-424); Red Blood Count 4.62 M/mm3 (4.20-5.40); Red Cell Distribution Width 13.4 % (11.5-17.5); White Blood Count 9.5 K/mm3 (4.8-10.8)
[2023-02-06 18:01] LABS: Microscopic, Urine URINE MICROSCOPIC (MICROSCOPIC)
[2023-02-06 18:04] LABS: Chloride 105 mmol/L (98-107); Potassium 3.8 mmoL/L (3.5-5.1); Sodium 139 mmol/L (136-145)
[2023-02-06 18:06] LABS: Alanine Aminotransferase 32 U/L (12-78); Alkaline Phosphatase 62 U/L (38-126); Aspartate Amino Transferase 32 U/L (14-36); Bilirubin,Total 0.9 mg/dl (0.2-1.3); Blood Urea Nitrogen 12 mg/dl (7-17); Creatinine Clearance Estimated 60 mL/min (50-200); Estimated Glomerular Filt Rate 61 ml/min (>60); GFR (African American) 74 ML/MIN (>60)
[2023-02-06 18:06] LABS: Appearance,Urine CLEAR (Clear); Bilirubin,Urine Negative (Negative); Blood, Urine 3+ (Negative); Color,Urine YELLOW (Yellow); Glucose,Urine (UA) Negative (Negative); Ketones,Urine Negative (Negative); Leukocyte Esterase,Urine Negative (Negative); Nitrate,Urine Negative (Negative); PH,Urine 5.5 (5.0-8.5); Protein,Urine 1+ (Negative); Specific Gravity, Urine >= 1.030 (1.005-1.030); Urobilinogen,Urine 0.2 EU/dl (0.2)
[2023-02-06 18:07] LABS: Albumin Level 4.1 g/dl (3.5-5.0); Albumin/Globulin Ratio 1.6 (1.1-1.8); Anion Gap 9.8 mEq/L (5-15); Calcium 9.5 mg/dl (8.4-10.2); Carbon Dioxide 28 mmol/L (22.0-30.0); Globulin 2.6 g/dL (1.3-3.2); Glucose 128 mg/dl (74-100); Lipase 67 U/L (23-300); Total Protein,Serum 6.7 g/dl (6.3-8.2)
--- NOTE | 2023-02-06 18:19 | PC.NURSE ---
Rounded on pt no needs , call light at bs
--- NOTE | 2023-02-06 18:56 | HMH.EDGENADL ---
Discharge Plan Disposition Patient Disposition: Home, Self-Care Chief Complaint: PAIN Prescriptions Prescriptions: No Action multivitamin [Daily Multi-Vitamin] Tablet 1 tab PO DAILY calcium carbonate [Calcium 600] 600 mg calcium (1,500 mg) tablet 600 mg PO DAILY levocetirizine [Xyzal] 5 mg tablet 5 mg PO QHS Qty: 90 1RF montelukast [Singulair] 10 mg tablet 10 mg PO QPM Qty: 90 1RF aspirin [Adult Low Dose Aspirin] 81 mg tablet,delayed release (DR/EC) 81 mg PO DAILY Hold Instructions: Resume on 01/26/23. losartan-hydrochlorothiazide 50-12.5 mg tablet 1 tab PO DAILY celecoxib 100 mg capsule 100 mg PO BID rosuvastatin 20 mg tablet 20 mg PO DAILY duloxetine 20 mg capsule,delayed release(DR/EC) 20 mg PO BID Referrals Follow up/Referrals: Jesus Shultz DO [Primary Care Provider] - See instructions Activity Restrictions/Add. Instructions Additional Instructions/Restrictions: Call your family doctor to establish care for this visit to the emergency department and schedule follow-up within 48 hours to ensure improvement. If you have any worsening of your condition or any other concerning signs or symptoms, return to the emergency department or your primary care doctor for further evaluation. If you have fevers, chills, inability urinate, or any other concerns, return to the ER. Clinical Impressions Clinical Impression: Left nephrolithiasis Discharge ED Provider: Hossein Smith General Adult HPI General Chief complaint: PAIN Stated complaint: vomiting, red urine, back pain Time Seen by Provider: 02/06/23 17:37 Mode of Arrival: Ambulatory Source of Information: Patient Limitations: No Limitations Description of Symptoms (Recalled from ER Triage Doc. by RN): Patient reports left flank pain and vomiting that started this morning. States she feels like she has kidney stones again. History of Present Illness HPI narrative: 77-year-old female with history of hypertension, hyperlipidemia, anxiety, numerous kidney stones presenting with left leg pain. Patient states that started around 12 PM today. She was shopping with her grandson and had acute onset left leg pain. Now radiating to her left abdomen. Denies nausea vomiting, fevers or chills. Has had dysuria and hematuria. Able to urinate without issue. Pain is severe in intensity, not made better with Tylenol or Motrin. Related Data Home Medications Medication Instructions Recorded Confirmed calcium carbonate 600 mg calcium 600 mg PO DAILY Supplement 02/13/22 02/03/23 (1,500 mg) tablet (Calcium) multivitamin (Daily Multi-Vitamin 1 tab PO DAILY Supplement 12/23/22 02/03/23 tablet) aspirin 81 mg tablet,delayed 81 mg PO DAILY CAD 01/14/23 02/03/23 release (Adult Low Dose Aspirin) celecoxib 100 mg capsule 100 mg PO BID . 01/14/23 02/03/23 duloxetine 20 mg capsule,delayed 20 mg PO BID MOOD 01/14/23 02/03/23 release losartan 50 mg-hydrochlorothiazide 1 tab PO DAILY HTN 01/14/23 02/03/23 12.5 mg tablet rosuvastatin 20 mg tablet 20 mg PO DAILY HLD 01/14/23 02/03/23 Previous Rx's Medication Instructions Recorded levocetirizine 5 mg tablet (Xyzal) 5 mg PO QHS allergies #90 tabs 08/19/22 montelukast 10 mg tablet 10 mg PO QPM allergies #90 tabs 08/19/22 (Singulair) Allergies Allergy/AdvReac Type Severity Reaction Status Date / Time indomethacin [INDOMETHACIN] Allergy Unknown NA-DIZZINESS,LIGHT Verified 02/03/23 13:07 HEADED metaxalone [From SKELAXIN] Allergy Unknown NA-DIZZINESS, Verified 02/03/23 13:07 LIGHT HEADED [facility] Disclaimer: The information contained in this section may have been updated after the patient was seen, as this information can be updated by other users. Medical History Abnormal electrocardiogram [ECG] [EKG] Agatston coronary artery calcium score less than 100 CAC Score 2 Dyspnea Family hi
--- NOTE | 2023-02-06 20:31 | PC.NURSE ---
Pt pain re-evaluated, pt states the additional toradol and T-3 has eased a little but not significant enough that she feels comfortable going home. Dr Smith aware
--- NOTE | 2023-02-06 20:38 | CT_ITS ---
PROCEDURE INFORMATION: Exam: CT Abdomen And Pelvis Without Contrast Exam date and time: 02/06/2023 9:04 PM Age: 77 years old Clinical indication: Abdominal pain; Flank; Left; Additional info: L stone TECHNIQUE: Imaging protocol: Computed tomography of the abdomen and pelvis without contrast. Radiation optimization: All CT scans at this facility use at least one of these dose optimization techniques: automated exposure control; mA and/or kV adjustment per patient size (includes targeted exams where dose is matched to clinical indication); or iterative reconstruction. REPORTING DATA: Count of CT and Cardiac NM exams in prior 12 months: This patient has received [address] and 0 known cardiac nuclear medicine studies in the 12 months prior to the current study. COMPARISON: CT ABDOMEN PELVIS WO CON 01/15/2021 2:31 PM FINDINGS: Lungs: Juxtafissural 11 x 10 mm pulmonary nodule in the right lung base. Few additional 3-4 mm noncalcified pulmonary nodules are also noted and unchanged from 01/15/2021 CT. Liver: Fatty liver. No suspicious liver lesions. Gallbladder and bile ducts: Unremarkable. Pancreas: Unremarkable. Spleen: Scattered punctate calcifications in the spleen compatible with sequelae of prior granulomatous disease, unchanged. Adrenal glands: Unremarkable. Kidneys and ureters: Proximal left ureteral stone (10 x 7 mm) at the ureteropelvic junction associated with [id number] left hydronephrosis and renal edema. Few additional non-obstructing stones in the left kidney. Stable left simple renal cysts. Stomach and bowel: Unremarkable. Appendix: No evidence of appendicitis. Intraperitoneal space: No free fluid. No pneumoperitoneum. Vasculature: No abdominal aortic aneurysm. Lymph nodes: Unremarkable. Urinary bladder: Unremarkable. Reproductive: Status post hysterectomy. Bones/joints: Stable post-operative appearance of prior posterior lumbar fixation/fusion. Multi-level bridging disc osteophytes in the spine compatible with diffuse idiopathic skeletal hyperostosis (DISH), unchanged. No evidence of acute osseous abnormality. Soft tissues: Unremarkable. IMPRESSION: 1. Proximal left ureteral stone (10 x 7 mm) at the ureteropelvic junction associated with inoa-zy-fudhwsgz left hydronephrosis and renal edema. 2. Few additional non-obstructing stones in the left kidney. 3. Fatty liver. 4. Juxtafissural 11 x 10 mm pulmonary nodule in the right lung base. Please see comments below for current guidelines. 5. Additional chronic ancillary findings are unchanged from prior exam, as detailed above. COMMENTS: Regarding incidental solid pulmonary nodules >8 mm in size, current guidelines recommend for patients at low risk (minimal or absent history of smoking and of other known risk factors) chest CT at 3-6 months, then consider CT Chest at 18-24 months. For patients at high risk (history of smoking or of other known risk factors), recommend CT Chest at 3-6 months, then CT Chest at 18-24 months. (Reference: Jose L) REFERENCES: Jose L Bassett, et al. Guidelines for Management of Incidental Pulmonary Nodules Detected on CT Images: From the Fleischner Society 2017. Radiology. 2017;284(1):228-243.
--- NOTE | 2023-02-06 21:23 | PC.NURSE ---
contacted [facility] for pt transfer
--- NOTE | 2023-02-06 21:32 | PC.NURSE ---
on phone with dr krause
--- NOTE | 2023-02-06 21:36 | PC.NURSE ---
pt has been accepted to [facility]. @ bedside
--- NOTE | 2023-02-06 21:38 | PC.NURSE ---
ON PHONE WITH DR. STU [facility]ANGEL [facility].
[2023-02-06 21:49] VITALS: BP 151/83; PULSE 90; RESP 18; TEMP 36.6
== END 2023-02-06 21:56 | disposition other institution (70) ==
PROVIDERS: Emergency Provider Emergency Medicine; PCP Internal Medicine
DX: N13.30 Unspecified hydronephrosis (principal); N20.0 Calculus of kidney; R31.9 Hematuria, unspecified; I10 Essential (primary) hypertension; E78.5 Hyperlipidemia, unspecified; F41.9 Anxiety disorder, unspecified
CPT/HCPCS: 74176; 80053; 81001; 83690; 85025; 96361; 96374; 96375; 99285; J0131; J2405

== ENCOUNTER → 2023-04-22 10:19 | Outpatient (CLI) | payer MEDICARE, BC, SELFPAY ==
--- NOTE | 2023-04-22 10:20 | MM_ITS ---
PROCEDURE INFORMATION: Exam: MG Bilateral Screening 3D Mammography Exam date and time: 04/22/2023 10:21 AM Age: 77 years old Clinical indication: Screening examination TECHNIQUE: Imaging protocol: Bilateral Screening tomosynthesis and 2D mammography including computer-aided detection (CAD) when performed. COMPARISON: 1. MG MM DIG SCREENING MAMM BI W/CAD 02/24/2022 1:07 PM 2. MG MM DIG SCREENING MAMM BI W/CAD 12/07/2020 8:00 AM FINDINGS: MAMMOGRAPHY: Breast composition: The breasts are heterogeneously dense, which may obscure small masses. Mass: None. Architectural distortion: None. Calcifications: No suspicious calcifications. Asymmetric density: None. Skin thickening: None. Axillary adenopathy: None. IMPRESSION: No mammographic evidence of malignancy. Annual screening is recommended unless otherwise clinically indicated. ASSESSMENT: BI-RADS Category 1: Negative
== END ==
PROVIDERS: PCP Internal Medicine; Visit Provider Internal Medicine
DX: Z12.31 Encounter for screening mammogram for malignant neoplasm of breast (principal)
CPT/HCPCS: 77063; 77067

== ENCOUNTER 2023-07-07 06:30 | Outpatient (CLI) | payer MEDICARE, BC, SELFPAY ==
[2023-07-07 16:51] LABS: Coronavirus 19, PCR Not Detected (NotDetected); Influenza A, PCR Not Detected (NotDetected); Influenza B, PCR Not Detected (NotDetected)
== END 2023-07-07 23:59 ==
PROVIDERS: PCP Internal Medicine; Visit Provider Internal Medicine
DX: R06.02 Shortness of breath (principal); R05.9 Cough, unspecified; R09.89 Other specified symptoms and signs involving the circulatory and respiratory systems; R09.82 Postnasal drip; J02.9 Acute pharyngitis, unspecified
CPT/HCPCS: 87636

== ENCOUNTER 2023-08-03 07:50 | Outpatient (CLI) | payer MEDICARE, BC, SELFPAY ==
[2023-08-03 08:31] LABS: Alanine Aminotransferase 26 U/L (12-78); Albumin Level 4.1 g/dl (3.5-5.0); Alkaline Phosphatase 66 U/L (38-126); Aspartate Amino Transferase 26 U/L (14-36); Bilirubin,Indirect 1.4 mg/dL (0.0-0.9); Bilirubin,Total 1.4 mg/dl (0.2-1.3); Bilirubin,Unconjugated 1.6 mg/dL (0.0-1.1); Chol/HDL Ratio 1.7 (1-3.5); Cholesterol 144 mg/dl (140-200); HDL Cholesterol 86 mg/dl (40-60); Total Protein,Serum 6.5 g/dl (6.3-8.2); Triglycerides 75 mg/dl (30-150); VLDL Cholesterol 15 mg/dL (0-40)
[2023-08-03 08:42] LABS: Direct LDL Cholesterol 39.79 mg/dL (100-129)
== END 2023-08-03 23:59 ==
PROVIDERS: PCP Internal Medicine; Visit Provider Physician Assistant
DX: I10 Essential (primary) hypertension (principal); R94.31 Abnormal electrocardiogram [ECG] [EKG]; R53.83 Other fatigue; R06.83 Snoring; R06.09 Other forms of dyspnea; R93.1 Abnormal findings on diagnostic imaging of heart and coronary circulation; E78.5 Hyperlipidemia, unspecified
CPT/HCPCS: 36415; 80061; 80076

== ENCOUNTER 2024-02-01 14:24 | Outpatient (CLI) | payer MEDICARE, BC, SELFPAY ==
[2024-02-01 14:43] LABS: Basophils # 0.1 K/mm3 (0-0.2); Basophils % 0.7 % (0.1-2.0); Eosinophils # 0.2 K/mm3 (0.0-0.4); Hematocrit 43.8 % (37.0-47.0); Hemoglobin 13.8 g/dL (12.2-16.2); Lymphocytes # 1.8 K/mm3 (0.7-4.5); Lymphocytes % 24.1 % (10-50); Mean Corpuscular HGB Conc 31.4 g/dL (31.8-35.4); Mean Corpuscular Hemoglobin 32.2 pg (27.0-31.2); Mean Corpuscular Volume 102.4 fl (81-99); Mean Platelet Volume 9.1 fl (7.4-10.4); Monocytes # 0.3 K/mm3 (0.1-1.0); Monocytes % 4.2 % (1.7-9.3); Neutrophils # 5.2 K/mm3 (1.8-7.8); Neutrophils % 68.9 % (37.0-80.0); Platelet Count 243 K/mm3 (142-424); Red Blood Count 4.28 M/mm3 (4.20-5.40); Red Cell Distribution Width 14.2 % (11.5-17.5); White Blood Count 7.5 K/mm3 (4.8-10.8)
[2024-02-01 15:22] LABS: Albumin Level 4.3 g/dl (3.5-5.0); Chloride 107 mmol/L (98-107); Sodium 139 mmol/L (136-145)
[2024-02-01 15:24] LABS: Bilirubin,Unconjugated 1.3 mg/dL (0.0-1.1); Blood Urea Nitrogen 21 mg/dl (7-17); Estimated Glomerular Filt Rate 48 ml/min (>60); GFR (African American) 58 ML/MIN (>60)
[2024-02-01 15:25] LABS: Alanine Aminotransferase 27 U/L (12-78); Alkaline Phosphatase 60 U/L (38-126); Aspartate Amino Transferase 35 U/L (14-36); Bilirubin,Direct 0.1 mg/dl (0.0-0.4); Bilirubin,Indirect 1.3 mg/dL (0.0-0.9); Bilirubin,Total 1.4 mg/dl (0.2-1.3); Carbon Dioxide 30 mmol/L (22.0-30.0); Chol/HDL Ratio 1.6 (1-3.5); Cholesterol 150 mg/dl (140-200); Glucose 120 mg/dl (74-100); HDL Cholesterol 96 mg/dl (40-60); Total Protein,Serum 6.6 g/dl (6.3-8.2); Triglycerides 119 mg/dl (30-150); VLDL Cholesterol 24 mg/dL (0-40)
[2024-02-01 15:36] LABS: Direct LDL Cholesterol 30.46 mg/dL (100-129)
[2024-02-01 15:48] LABS: Free T4 (Free Thyroxine) 0.82 ng/dl (0.78-2.19)
== END 2024-02-01 23:59 | disposition home or self-care (01) ==
LOC: LAB 14:26
PROVIDERS: PCP Internal Medicine; Visit Provider Physician Assistant
DX: R53.83 Other fatigue (principal); R00.2 Palpitations; I10 Essential (primary) hypertension; R06.09 Other forms of dyspnea
CPT/HCPCS: 36415; 80048; 80061; 80076; 84439; 84443; 85025; 93225; 93227

== ENCOUNTER 2024-02-26 16:54 | Outpatient (CLI) | payer MEDICARE, BC, SELFPAY ==
[2024-02-26 16:38] LABS: Adenovirus,PCR Not Detected (NotDetected); Bordetella Pertussis Not Detected (NotDetected); Chlamydophila Pneumoniae, PCR Not Detected (NotDetected); Coronavirus 19, PCR Not Detected (NotDetected); Coronavirus 229E Not Detected (NotDetected); Coronavirus NL63 Not Detected (NotDetected); Coronavirus OC43 Not Detected (NotDetected); Coronovirus HKU1,PCR Not Detected (NotDetected); Human Metapneumovirus Not Detected (NotDetected); Influenza A, PCR Not Detected (NotDetected); Influenza AH1, 2009 Not Detected (NotDetected); Influenza AH1, PCR Not Detected (NotDetected); Influenza AH3,PCR Not Detected (NotDetected); Influenza B, PCR Not Detected (NotDetected); Mycoplasma Pneumoniae, PCR Not Detected (NotDetected); Parainfluenza 1, PCR Not Detected (NotDetected); Parainfluenza 2, PCR Not Detected (NotDetected); Parainfluenza 3, PCR Not Detected (NotDetected); Parainfluenza 4, PCR Not Detected (NotDetected); Respiratory Syncytial Virus Not Detected (NotDetected)
[2024-02-26 20:08] LABS: Rhinovirus/Enterovirus Detected (NotDetected)
== END 2024-02-26 23:59 | disposition home or self-care (01) ==
LOC: LAB.DROPOF 16:54
PROVIDERS: PCP Internal Medicine; Visit Provider Internal Medicine
DX: R53.83 Other fatigue (principal); E53.8 Deficiency of other specified B group vitamins; R05.9 Cough, unspecified; R51.9 Headache, unspecified; J06.9 Acute upper respiratory infection, unspecified
CPT/HCPCS: 87265; 87486; 87581; 87632; 87635

== ENCOUNTER 2024-06-17 13:39 | Outpatient (CLI) | payer MEDICARE, BC, SELFPAY ==
--- NOTE | 2024-06-17 13:41 | MM_ITS ---
PROCEDURE INFORMATION: Exam: MG Bilateral Screening 3D Mammography Exam date and time: 06/17/2024 1:52 PM Age: 79 years old Clinical indication: Screening examination TECHNIQUE: Imaging protocol: Bilateral Screening tomosynthesis and 2D mammography including computer-aided detection (CAD) when performed. COMPARISON: 1. MG MM DIG SCREENING MAMM BI W/CAD 04/22/2023 10:21 AM 2. MG MM DIG SCREENING MAMM BI W/CAD 02/24/2022 1:07 PM FINDINGS: MAMMOGRAPHY: Breast composition: The breasts are heterogeneously dense, which may obscure small masses. Mass: None. Architectural distortion: None. Calcifications: No suspicious calcifications. Asymmetric density: None. Skin thickening: None. Axillary adenopathy: None. IMPRESSION: No mammographic evidence of malignancy. Annual screening is recommended unless otherwise clinically indicated. ASSESSMENT: BI-RADS Category 1: Negative.
== END 2024-06-17 23:59 | disposition home or self-care (01) ==
LOC: RAD 13:41
PROVIDERS: PCP Internal Medicine; Visit Provider Internal Medicine
DX: Z12.31 Encounter for screening mammogram for malignant neoplasm of breast (principal)
CPT/HCPCS: 77063; 77067

== ENCOUNTER 2024-08-23 11:22 | Outpatient (CLI) | payer MEDICARE, BC, SELFPAY ==
--- OUTSIDE RECORDS SUMMARY | 2024-08-23 11:26 | XMS_ITS | Data Portability ---
Author Organization [place] - [facility] [place] Address [address] [place] [address] Assessment No assessment recorded. Plan of Treatment Reminders Order Date Submit Date Provider Last Modified By Organization Details Last Modified Time Details Appointments None record ed. Lab None record ed. Referral None record ed. Procedures None record ed. Surgeries None record ed. Imaging XR, abdome n, 1 view 023 03/05/20 [email or web address] [facility] (Central Scheduling), [address] [place] [address], [address], 3 08:15:30 Medication Orders None record ed. Patient TargetsNo targets recorded. Patient InstructionsNo instructions recorded. Reason for Referral None Reported. Results Created Date Observation Date Name Description Value Unit Range Abnormal Flag Note LastModifiedBy Organization Detail LastModifiedTime 03/05/2003/05/2023 XR, abdom en, 1 view [facility] [address] [address] [phone] (Phone ) DIAGNO STIC IMAGIN G REPORT ------ ------ ------ ------ ------ ------ ------ ------ ----- Ayden smith Name: STEPHANIE MACHADO No: [id number] Medica l Record No: [id number] Date of : 1945 Access ion No: [id number] Date of Exam: 2022 Patien t Type: Outpat ient Orderi ng Physic bipin: JIMMIE VUONG ------ ------ ------ ------ ------ ------ ------ ------ ----- FINAL REPORT PROCED URE: ABD KUB 1V CLINIC AL HISTOR Y: renal stone COMPAR RONY: 01/16/20 21 FINDIN GS: A single supine view the abdome n was obtain ed. The bowel gas patter n is nonspe cific but nonobs tructi ve. There has been interv al placem ent of the left ureter al stent. There are severa l left renal stones . The larges t is in the lower pole. This measur es approx imatel y 6 mm. Pelvic calcif icatio ns are stable and likely phlebo liths. No acute osseou s abnorm ality. IMPRES YASHIRA: Nonspe cific but nonobs tructi ve bowel gas patter n. Left ureter al stent. Left renal stones . Review ed, Interp reted and Dictat ed by Kinsey Salazar MD Transc ribed by Abhijeet Gomez PA-C Authen ticate d and Electr onical ly Signed by Kinsey Salazar MD on 2022 08:41: 36 AM ISREAL Cisneros CC'ed Logic: Orderi ng Provid er: YEVGENIY Thomas CC Provid er: DECLIN ED PCP Attend ing Provid er: YEVGENIY Thomas Referr ing Provid er: YEVGENIY Thomas Admitt ing Provid er: YEVGENIY Thomas [email or web address] [facility] (Central Scheduling) [address] [place] [address] [place], [address], 03/12/2023 08:15:13 06/04/19 24 06/04/2023 XR, abdom en, 1 view [facility] [place] [address] [place] [address] [phone] (Phone ) DIAGNO STIC IMAGIN G REPORT ------ ------ ------ ------ ------ ------ ------ ------ ----- Ayden smith Name: STEPHANIE MACHADO No: [id number] Medica l Record No: [id number] Date of : 1945 Access ion No: [id number] Date of Exam: 2023 Ayden smith Type: Outpat ient Orderi ng Physic bipin: JIMMIE VUONG ------ ------ ------ ------ ------ ------ ------ ------ ----- FINAL REPORT PROCED URE: ABD KUB 1V CLINIC AL HISTOR Y: n20.0 calcul us of kidney COMPAR RONY: 2022 FINDIN GS: A single view of the abdome n was obtain ed. There is a large amount of coloni c stool throug hout the colon with no eviden ce of bowel obstru ction. There has been interv al remova l of a previo usly seen left double -J stent. There has been interv al decrea se in radiod ensiti es overly ing the left kidney with small residu al radiod ensiti es measur ing up to 2 mm. These likely repres ent small nonobs tructi ng left renal calcul i. There are stable radiod ensiti es overly ing the right kidney measur ing up to 4 mm which also likely reflec t nonobs tructi ng renal calcul i. IMPRES YASHIRA: Bilate ral renal calcul i. Interv al remova l of left double -J stent. Large amount of coloni c stool. Review ed, Interp reted and Dictat ed by Aleksandra Escobar MD Transc ribed by Thelma swartz d and Electr onical ly Signed by Aleksandra Escobar MD on 2023 09:57: 16 AM ISREAL Cisneros CC'ed Logic: Orderi ng Provid er: YEVGENIY Thomas CC Provid er: DECLIN ED PCP Attend ing Provid er: YEVGENIY Thomas Referr ing Provid er: YEVGENIY Thomas Admitt ing Provid er: YEVGENIY Thomas [email or web address] [facility] (Central Scheduling) [address] [place] [address] [place], [address], 06/04/2023 15:37:35 Result Notes None recorded. Procedures Surgical History Date Name Laterality Status Provider Name and Address Organization Details Recorded Time 3 Stent Removal completed John Vuong Jr, MD [address], [address], [place], [address], [place] - [facility] [place] & [place] 03/05/2023 15:04:52 1 Back Surgery completed Nancy PICHARDO - [facility] - [place] & [place] 06/04/2023 09:56:41 5 Appendectomy completed Nancy PICHARDO - [facility] & [place] 06/04/2023 09:56:41 Imaging Results Imaging Date Name Status LastModified by Organiz ation Details LastModified Time 03/05/2023 XR, abdomen, 1 view completed [email or web address] (Central Scheduling) [address] [place] [address] [place], [address], 03/12/2023 08:15:13 06/04/2023 XR, abdomen, [address] view [address] (Central Scheduling) [address] [place] [address] [place], [address], 06/04/2023 15:37:35 Procedure Notes None recorded. Medical Equipment None Reported. Allergies Allergen ID Allergen Name Allergen Category Reaction Reaction Severity Criticality Documentation Date Start Date Code Code System Note Provider Name and Address Organization Details Recorded Time 214069 Skelaxin medicatio n Not available Not available Not available 03/05/2023 50876 5 RxNorm Vickie Ariza null, [place] - [facility] - [place] & [place] 3 09:13:53 111923 indometha saskia medicatio n Not available Not available Not available 03/05/2023 5781 RxNorm Vickie Ariza null, [place] - [facility] - [place] & [place] 3 09:14:34 Medications Name Sig Start Date Stop Date Status Note LastModified by Organization Details LastModified Time phenazopyri dine 200 mg tablet active Not Available Not Available Not Available sertraline 100 mg tablet TAKE ONE TABLET BY MOUTH EVERY DAY FOR depressio n 03/05 completed Not Available Not Available Not Available amlodipine 5 mg tablet TAKE ONE TABLET BY MOUTH EVERY DAY FOR BLOOD PRESSURE 03/05 completed Not Available Not Available Not Available aspirin 81 mg tablet,michael yed release TAKE ONE TABLET BY MOUTH EVERY DAY active Not Available Not Available No t Available montelukast 10 mg tablet TAKE ONE TABLET BY MOUTH EVERY EVENING FOR allergies active Not Available Not Available No t Available losartan 50 mg-hydrochl orothiazide 12.5 mg tablet TAKE ONE TABLET BY MOUTH EVERY DAY active Not Available Not Available No t Available celecoxib 100 mg capsule TAKE ONE CAPSULE BY MOUTH TWICE DAILY active Not Available Not Available No t Available ondansetron 4 mg disintegrat ing tablet DISSOLVE ONE TABLET BY MOUTH EVERY 6 HOURS 03/05 completed Not Available Not Available Not Available cefdinir 300 mg capsule TAKE ONE CAPSULE BY MOUTH TWICE DAILY UNTIL ALL TAKEN 03/05 completed Not Available Not Available Not Available sulindac 200 mg tablet TAKE ONE TABLET BY MOUTH EVERY DAY 03/05 completed Not Available Not Available Not Available rosuvastati n 10 mg tablet TAKE ONE TABLET BY MOUTH EVERY DAY 03/05 completed Not Available Not Available Not Available rosuvastati n 20 mg tablet TAKE ONE TABLET BY MOUTH EVERY DAY active Not Available Not Available No t Available duloxetine 20 mg capsule,del ayed release TAKE ONE CAPSULE BY MOUTH TWICE DAILY active Not Available Not Available No t Available Singulair active Not Available Not Kristina ilable Not Available Celebrex active Not Available Not Avai lable Not Available Crestor active Not Available Not Avail able Not Available Cymbalta active Not Available Not Avai lable Not Available levocetiriz ine 5 mg tablet TAKE ONE TABLET BY MOUTH EVERY DAY AT BEDTIME active Not Available Not Available No t Available Xyzal active Not Available Not Availa ble Not Available Vitals Date Recorded Body height Body mass index (BMI) Body weight Body temperature Provider Name and Address Organization Details Last Updated DateTime 03/05/2023 162.56 cm 29.2 kg/m2 27187.7 g 98 [degF] [facility] & [place] 03/05/2023 09:13:36 Date Recorded Body height Body mass index (BMI) Body weight Body temperature Provider Name and Address Organization Details Last Updated DateTime 06/04/2023 162.56 cm 29.2 kg/m2 84744.7 g 97.9 [degF] Nancy Garcia [facility] & [place] 06/04/2023 09:56:18 Social History Question Answer Notes LastModified by Organizat ion Details LastModified Time Tobacco Smoking Status Never Smoker Vickie donahue, MARINO Larry [facility] & [place] 03/05/2023 09:17:46 What Is Your Level Of Alcohol Consumption? Occasional [email or web address] Information not available 06/04/2023 Are You Passively Exposed To Smoke? No [email or web address] Information not available 06/04/2023 Sex: Unknown Functional Status None recorded. Mental Status None recorded. Family History Nothing Reported Notes:mother father heart stroke Medical History Condition Response Kidney Stones Y Arthritis Y Hypertension Y Gynecological History Statement/Question Response Sexually Active? N Obstetrics History GPAL:G 0 P 0 0 0 0 Past Encounters Encounter ID Performer Location Encounter Start Date Encounter Closed Date Diagnosis/Indication Diagnosis SNOMED-CT Code Diagnosis ICD10 Code Diagnosis Note [id number] John Vuong Jr, MD [facility] [address] [place] [address] [facility] [id number] 03/05/2023 08:56:46 03/05/2023 10:40:25 Kidney stone 60197698 N20.0 77-year-ol d white female with history of a 14 mm left UPJ stone status post stenting and later ESWL. KUB today shows small stone fragments in the left lower pole. She has passed a lot of stone fragments and we will send these off for analysis. Stent was removed with use of cystoscopy today and she tolerated well. Will see her back in 3 months with a KUB. Postural drainage and percussion was discussed in order to get rid of the lower pole stones. [id number] John Vuong Jr, MD [facility] [address] [place] [address] [facility] [id number] 06/04/2023 09:36:58 06/04/2023 10:37:12 Kidney stone 48994699 N20.0 77-year-ol d white female with history of a 14 mm left UPJ stone status post stenting and later ESWL. KUB at her last visit showed small stone fragments in the left lower pole. KUB today shows that the stone fragments passed and was commended good job postural drainage and percussion . See her back as-needed basis. Health Concerns Section Related Observation LastModified by Organization Detai ls LastModified Time None Recorded Concern Status LastModified by Organization Details LastModified Time None Recorded Advance Directives Directive None Recorded Payers Encounter Date Sequence Insurance Name Policy Number Policy Shin Covered Member ID Shin Member ID Guarantor Name 03/05/2023 1 [place] Stephanie B Alton [id number] Stephanie Alton 03/05/2023 2 [place] [employer] [employer] 104 Stephanie B Alton [id number] Stephanie Alton 06/04/2023 1 [place] Stephanie B Alton [id number] Stephanie Alton 06/04/2023 2 [place] [employer] [employer] 104 Stephanie B Alton [id number] Stephanie Alton Notes Date Note Type Note Provider Name and Address Organization Details Recorded Time 03/05/2023 text/html patient is a 77-year-old white female with history of a 14 mm left UPJ stone. She has undergone previous stenting and ESWL. She returns today in follow-up. KUB today shows several small left renal stones in the lower pole. Largest is 6 mm. Left ureteral stent is in place but no stones noted along the course of the stent. Patient has passed a lot of calcifications and brings an several today. She is tolerating her stent very well. John Vuong Jr, MD [address], [address], [place], [address], [place] - [facility] - [place] & [place] 03/05/2023 15:05:49 06/04/2023 text/html Patient is a 78-year-old white with history nephrolithiasis. She has history of a 14 mm left UPJ stone has undergone previous stenting later ESWL. Returns today routine follow-up. KUB shows no stones left pole today. John Vuong Jr, MD [address] [place] [address], [address], [place], [address], [place] [facility] - [place] & [place] 07/09/2023 13:02:03 OBGyn Episode No OBEpisode recorded.
--- NOTE | 2024-08-23 11:28 | XR_ITS ---
FINAL REPORT CLINICAL HISTORY: Fall, chest wall pain FINDINGS: PA and lateral views of the chest are obtained. There is no prior exam for comparison. The cardiac and mediastinal silhouettes are within normal limits. The lungs are clear. There is no pleural effusion, pneumothorax, or acute osseous abnormality. IMPRESSION: No radiographic evidence of acute cardiac or pulmonary disease. Reviewed, Interpreted and Dictated by Kinsey Salazar MD Transcribed by Trini Marques Authenticated and [facility]
[2024-08-23 13:15] LABS: Basophils % 0.4 % (0.1-2.0); Eosinophils # 0.1 K/mm3 (0.0-0.4); Eosinophils % 0.8 % (0.1-12.0); Hematocrit 40.3 % (37.0-47.0); Hemoglobin 13.6 g/dL (12.2-16.2); Lymphocytes # 1.3 K/mm3 (0.7-4.5); Lymphocytes % 15.3 % (10-50); Mean Corpuscular HGB Conc 33.7 g/dL (31.8-35.4); Mean Corpuscular Hemoglobin 31.6 pg (27.0-31.2); Mean Corpuscular Volume 93.5 fl (81-99); Mean Platelet Volume 11.4 fl (7.4-10.4); Monocytes # 0.5 K/mm3 (0.1-1.0); Monocytes % 6.3 % (1.7-9.3); Neutrophils # 6.5 K/mm3 (1.8-7.8); Neutrophils % 76.8 % (37.0-80.0); Nucleated Red Blood Cells # 0 10^3/uL; Nucleated Red Blood Cells % 0 %; Platelet Count 250 K/mm3 (142-424); Red Blood Count 4.31 M/mm3 (4.20-5.40); Red Cell Distribution Width 12.9 % (11.5-17.5); Red Cell Distribution Width-SD 43.8 fL; White Blood Count 8.4 K/mm3 (4.8-10.8)
[2024-08-23 13:42] LABS: Alanine Aminotransferase 25 U/L (12-78); Albumin Level 4.1 g/dl (3.5-5.0); Albumin/Globulin Ratio 1.5 (1.1-1.8); Alkaline Phosphatase 68 U/L (38-126); Anion Gap 14.1 mEq/L (5-15); Aspartate Amino Transferase 31 U/L (14-36); Bilirubin,Total 1.3 mg/dl (0.2-1.3); Blood Urea Nitrogen 17 mg/dl (7-17); Carbon Dioxide 26 mmol/L (22.0-30.0); Chloride 103 mmol/L (98-107); Estimated Glomerular Filt Rate 54 ml/min (>60); GFR (African American) 65 ML/MIN (>60); Globulin 2.7 g/dL (1.3-3.2); Glucose 104 mg/dl (74-100); Potassium 4.1 mmoL/L (3.5-5.1); Sodium 139 mmol/L (136-145); Total Protein,Serum 6.8 g/dl (6.3-8.2)
== END 2024-08-23 23:59 | disposition home or self-care (01) ==
LOC: RAD 11:24
PROVIDERS: PCP Internal Medicine; Visit Provider Internal Medicine
DX: R58 Hemorrhage, not elsewhere classified (principal); R07.89 Other chest pain; R53.83 Other fatigue
CPT/HCPCS: 71046; 80053; 85025

== ENCOUNTER 2024-08-24 11:41 | Outpatient (CLI) | payer MEDICARE, BC, SELFPAY ==
--- OUTSIDE RECORDS SUMMARY | 2024-08-24 11:43 | XMS_ITS | Data Portability ---
Author Organization [place] - [facility] [place] Address [address] [place] [address] Assessment No assessment recorded. Plan of Treatment Reminders Order Date Submit Date Provider Last Modified By Organization Details Last Modified Time Details Appointments None record ed. Lab None record ed. Referral None record ed. Procedures None record ed. Surgeries None record ed. Imaging XR, abdome n, 1 view 023 03/05/20 [email or web address] [facility] (Central Scheduling), [address] [place] [address], [address], 3 08:15:30 Medication Orders None record ed. Patient TargetsNo targets recorded. Patient InstructionsNo instructions recorded. Reason for Referral None Reported. Results Created Date Observation Date Name Description Value Unit Range Abnormal Flag Note LastModifiedBy Organization Detail LastModifiedTime 03/05/2003/05/2023 XR, abdom en, 1 view [facility] [address] [address] [phone] (Phone ) DIAGNO STIC WESTONIN G REPORT ------ ------ ------ ------ ------ ------ ------ ------ ----- Ayden smith Name: STEPHANIE MACHADO No: [id number] 2 Medica l Record No: [id number] Date of : 1945 Access ion No: [id number] Date of Exam: 2022 Patien t [...] Kinsey Salazar MD Transc ribed by Abhijeet oGmez PA-C Authen ticate d and Electr onical ly Signed by Kinsey Salazar MD on 2022 08:41: 36 AM ISREAL Cisneros CC'ed Logic: Orderi ng Provid er: YEVGENIY Thomas CC Provid er: DECLIN ED PCP Attend ing Provid er: YEVGENIY Thomas Referr ing Provid er: YEVGENIY Thomas Admitt ing Provid er: YEVGENIY Thomas [email or web address] [facility] (Central Scheduling) [address] [place] [address] [place], [address], 03/12/2023 08:15:13 06/04/19 24 06/04/2023 XR, abdom en, 1 view [facility] [place] [address] [place] [address] (Phone ) DIAGNO STIC IMAGIN G REPORT ------ ------ ------ ------ ------ ------ ------ ------ ----- Ayden smith Name: STEPHANIE MACHADO No: [id number] Medica l Record No: [id number] Date of : 1945 Access ion No: [id number] Date of Exam: 2023 Adyen smith Type: Outpat ient Orderi ng Physic [...] Thomas Admitt ing Provid er: YEVGENIY Thomas [email or web address] [facility] (Central Scheduling) [address] [place] [address] [place], [address], 06/04/2023 15:37:35 Result Notes None recorded. Procedures Surgical History Date Name Laterality Status Provider Name and Address Organization Details Recorded Time 3 Stent Removal completed John Vuong Jr, MD [address], [address], [place], [address], [place] - [facility] [place] & [place] 03/05/2023 15:04:52 1 Back Surgery completed Nancy PICHARDO - [facility] - [place] & [place] 06/04/2023 09:56:41 5 Appendectomy completed Nancy PICHARDO - [facility] & [place] 06/04/2023 09:56:41 Imaging Results Imaging Date Name Status LastModified by Organiz ation Details LastModified Time 03/05/2023 XR, abdomen, 1 view completed [email or web address] (Central Scheduling) [address] [place] [address] [place], [address], 03/12/2023 08:15:13 06/04/2023 XR, abdomen, [address] view completed [address] (Central Scheduling) [address] [place] [address] [place], [address], 06/04/2023 15:37:35 Procedure Notes None recorded. Medical Equipment None Reported. Allergies Allergen ID Allergen Name Allergen Category Reaction Reaction Severity Criticality Documentation Date Start Date Code Code System Note Provider Name and Address Organization Details Recorded Time 976247 Skelaxin medicatio n Not available Not available Not available 03/05/2023 30338 5 RxNorm Vickie Ariza null, [place] [facility] [place] & [place] 3 09:13:53 249395 indometha saskia medicatio n Not available Not available Not available 03/05/2023 5781 RxNorm Vickie Ariza null, [place] - [facility] [place] & [place] 3 09:14:34 Medications Name Sig Start Date [...] Updated DateTime 03/05/2023 162.56 cm 29.2 kg/m2 45560.7 g 98 [degF] [facility] & [place] 03/05/2023 09:13:36 Date Recorded Body height Body mass index (BMI) Body weight Body temperature Provider Name and Address Organization Details Last Updated DateTime 06/04/2023 162.56 cm 29.2 kg/m2 38649.7 g 97.9 [degF] Nancy Garcia [facility] & [place] 06/04/2023 09:56:18 Social History Question Answer Notes LastModified by Organizat ion Details LastModified Time Tobacco Smoking Status Never Smoker Vickie donahue, MARINO [facility] & [place] 03/05/2023 09:17:46 What Is Your Level Of Alcohol Consumption? Occasional [email or web address] Information not available 06/04/2023 Are You Passively Exposed To Smoke? No [email or web address] Information not available 06/04/2023 Sex: Unknown Functional Status None recorded. Mental Status None recorded. Family History Nothing Reported Notes:mother father heart stroke Medical History Condition Response Arthritis Y Hypertension Y Kidney Stones Y Gynecological History Statement/Question Response Sexually Active? N Obstetrics History GPAL:G 0 P 0 0 0 0 Past Encounters Encounter ID Performer Location Encounter Start Date Encounter Closed Date Diagnosis/Indication Diagnosis SNOMED-CT Code Diagnosis ICD10 Code Diagnosis Note [id number] John Vuong Jr, MD [facility] [address] [place] [address] [facility] [id number] 03/05/2023 08:56:46 03/05/2023 10:40:25 Kidney stone 14501517 N20.0 77-year-ol d white female with history [...] get rid of the lower pole stones. [id number] John Vuong Jr, MD [facility] [address] [place] [address] [facility] [id number] 06/04/2023 09:36:58 06/04/2023 10:37:12 Kidney stone 70999997 N20.0 77-year-ol d white female with history [...] Name 03/05/2023 1 [place] Stephanie B Keyser [id number] Stephanie Keyser 03/05/2023 2 [place] [employer] [place] [employer] 104 Stephanie B Keyser [id number] Stephanie Keyser 06/04/2023 1 [place] Stephanie B Keyser [id number] Stephanie Keyser 06/04/2023 2 [place] [employer] 104 Stephanie B Keyser [id number] Stephanie Keyser Notes Date Note Type Note Provider Name [...] very well. John Vuong Jr, MD [address], [address], [place], [address], [place] [facility] - [place] & [place] 03/05/2023 15:05:49 06/04/2023 text/html Patient is a 78-year-old white with history nephrolithiasis. She has history of a 14 mm left UPJ stone has undergone previous stenting later ESWL. Returns today routine follow-up. KUB shows no stones left pole today. John Vuong Jr, MD [address] [place] [address], [address], [place], [address], [place] [facility] [place] & [place] 07/09/2023 13:02:03 OBGyn Episode No OBEpisode recorded.
--- NOTE | 2024-08-24 11:45 | CT_ITS ---
FINAL REPORT TECHNIQUE: Thin section axial images were obtained from skull base to vertex without contrast. Coronal and sagittal reconstruction images were obtained from the axial data. Exam was performed using dose reduction techniques such as automated exposure control, adjustment of the mA and kV according to patient size, and use of iterative reconstruction technique. CLINICAL HISTORY: Fall, head trauma on anti platelet COMPARISON: None FINDINGS: There is no mass effect or midline shift. There is no hydrocephalus. There is no intracranial hemorrhage. The posterior fossa is without acute abnormality. The basilar cisterns are preserved. The soft tissues are without acute abnormality. No acute osseous abnormality is identified. IMPRESSION: No acute intracranial abnormality. Reviewed, Interpreted and Dictated by Kinsey Salazar MD Transcribed by Leigh Zavala Authenticated and [facility]
== END 2024-08-24 23:59 | disposition home or self-care (01) ==
LOC: RAD 11:42
PROVIDERS: PCP Internal Medicine; Visit Provider Internal Medicine
DX: S09.90XA Unspecified injury of head, initial encounter (principal); Z79.02 Long term (current) use of antithrombotics/antiplatelets
CPT/HCPCS: 70450

== ENCOUNTER 2024-09-01 10:48 | Outpatient (CLI) | payer MEDICARE, BC, SELFPAY ==
--- NOTE | 2024-09-01 11:15 | CA_ITS ---
APPROVED REPORT EXAM: Comprehensive 2D, Doppler, and color-flow Echocardiogram Paper Steamer: CHRISTOPHER Hope, RVS Ht: 5 ft 4 in Wt: 179lbs BSA: 1.87 BP: 160/80 mmHg Indications: Aortic insufficiency,Asthma, Abn EKG, Murmurs 2D Dimensions Left Atrium 2.63 cm LA Volume 54.50 mL LA Volume Index 29.210536 mL/m2 (M/F) 16-34 M-Mode Dimensions RVDd 2.21 cm (0.9-2.6) LA Diam 4.09 cm (1.9-4.0) LVDd 4.17 cm (3.5-5.7) LVDs 2.85 cm (3.5-5.7) IVSd 0.96 cm (0.6-1.1) PWd 1.14 cm (0.6-1.1) EF (Teich) 60.00% EPSs 0.57 cm FS 31.70% EDV (Teich) 77.30 mL TAPSE 2.08 (<1.7) ESV (Teich) 30.90 mL LV Diastology E Decel Time 260 (160-240 msec) E/A Ratio 0.71 MED A' 11.20 cm/s LAT A' 8.10 cm/s Aortic Valve RAN Index 0.99 cm2/m2 AoV Peak Mario. 118.0 (50-130 cm/s) AI PHT 421.00 ms AO Peak GR. 5.60 mmHg AO Mean GR. 2.80 (<5 mmHg) AO VTI 26.2 (18-25 cm) RAN (VTI) 1.90 (2.5-4.5 cm2) Mitral Valve MV A Velocity 81.0 (40-130 cm/s) E/A Ratio 0.71 Tricuspid Valve TR P. Velocity 223.00 cm/s RAP Estimate 10.00 mmHg RVSP 29.90 mmHg Left Ventricle The left ventricle is normal size. The left ventricular systolic function is normal. The left ventricular ejection fraction is within the normal range. There is increased LV wall thickness. There is normal LV segmental wall motion. The left ventricular diastolic function is normal. LVEF is 55%. Right Ventricle The right ventricle is normal size. The right ventricular systolic function is normal. Atria Left atrium is mildly dilated. Right atrium is mildly dilated. There is no Doppler evidence of interatrial shunt. Aortic Valve Aortic valve is mildly thickened. There is no aortic valvular stenosis. Mild aortic regurgitation. Mitral Valve The mitral valve is normal in structure. No evidence of mitral valve stenosis. Trace mitral regurgitation. Tricuspid Valve Tricuspid valve is grossly normal in structure and function. Mild tricuspid regurgitation. RVSP is 20-25 mmHg. Pulmonic Valve The pulmonary valve is normal in structure. Mild pulmonic regurgitation. Great Vessels The aortic root is normal in size. IVC is normal in size and collapses >50% with inspiration. Pericardium There is no pericardial effusion. Other Information Study Quality: Fair Conclusion Normal biventricular systolic function. Mild biatrial dilation. Mild AI, mild TR, mild PI. Electronically signed by : Melanie Saleh MD 09/01/2024 11:57:20
== END 2024-09-01 23:59 | disposition home or self-care (01) ==
LOC: RT 10:50
PROVIDERS: PCP Internal Medicine; Visit Provider Physician Assistant
DX: I51.7 Cardiomegaly (principal); I35.1 Nonrheumatic aortic (valve) insufficiency; I36.1 Nonrheumatic tricuspid (valve) insufficiency; I37.1 Nonrheumatic pulmonary valve insufficiency; R00.2 Palpitations
CPT/HCPCS: 93306

== ENCOUNTER 2025-04-05 13:00 | Outpatient (RCR) | payer MEDICARE, BC, SELFPAY ==
--- NOTE | 2025-03-14 14:51 | HMH.PTOPEV ---
PT Evaluation Rehab PT Outpatient Evaluation Start: 03/14/25 13:51 Freq: Status: Active Protocol: Document 03/14/25 13:52 CLIVE (Rec: 03/14/25 14:50 CLIVE [id number]) E-signed By Lizeth Phan, PT Outpatient Therapy Subjective History Subjective History This is an initial PT evaluation for 79 y/o female, Stephanie Bang, who presents to PT with referral for weakness and falls. Pt reports she was in [place] in August when she had a fall resulting in a severe dental injury. Pt reports since then, she has fallen >4 times. Pt's last fall was ~ 3 weeks ago. Pt reports all falls have been from stubbing her toe. Pt does not use an AD at baseline. Pt reports she does not have neuropathy. Pt reports BLE weakness (R>L). Pt reports she does have a bad back with hx of LB surgery. Pt denies any numbness or tingling in his legs. Pt reports having hot flashes and intermittent dizziness in which she discussed with her PCP. Pt reports complaints of fatigue that have been going on since her fall. Pt uses a HR when negotiating stair steps and reports balance deficits when on uneven surfaces. PMH: hypertension, high cholesterol, herniated cervical discs, kidney stones New diagnosis of No cancer in past 12 months? Chief Complaint Gives out/Unstable,Weakness PT Balance Eval Posture and Alignment Static Standing Normal Posture: Weight-bearing Symmetrical Symmetry: Gait Assessment Assistive Device: None Gait Pattern: Normal Balance Assessment Static Balance EO: 20 Static Balance EC: 20 Romberg: Independent Dynamic Balance Tandem Walk: Unable Turning 360 Degrees: Stable Neuromuscular Assessment Coordination: Normal Strestephenh (LE)-MMT Hip Flexors Right 3+/5 Hip Flexors Left 4-/5 Knee Extensors Right 4-/5 Knee Extensors Left 4-/5 Ankle Dorsiflexors 4-/5 Right Ankle Dorsiflexors 4-/5 Left Functional Mobility Transfers: Independent Bed Mobility: Independent Stairs: With device Dynamic Gait Index Test Protocol Gait Level Surface Normal Query Text: Instructions: Walk at your normal speed from here to the next heidi (20'). Grading: Heidi the lowest category that applies. Change in Gait Speed Normal Query Text: Instructions: Begin walking at your normal pace (for 5') , when I tell you go , walk as fast as you can (for 5'). When I tell you slow , walk as slowly as you can ( for 5'). Grading: Heiid the lowest category that applies. Gait with Horizontal Normal Head Turns Query Text: Instructions: Begin walking at your normal pace. When I tell you to look right , keep walking straight, but turn you head to the right. Keep looking to the right unit I tell you look left , then keep walking straight and turn your head to the left. Keep your head to the left until I tell you look straight , then keep walking straight, but return you head to the center. Grading: Heidi the lowest category that applies. Gait with Vertical Normal Head Turns Query Text: Instructions: Begin walking at your normal pace. When I tell you to look up , keep walking staight, but tip your head up. Keep looking up until I tell you to look down , then keep walking straight and tip your head down. Keep your head down until I tell you look straight , then keep walking straight, but return your head to the center. Grading: Heidi the lowest category that applies. Gait and Pivot Turn Normal Query Text: Instructions: Begin walking at your normal pace. When I tell you turn and stop , turn as quickly as you can to face the opposite direction and stop. Grading: Heidi the lowest category that applies. Step Over Obstacle Mild Impairment Query Text: Instructions: Begin walking at your normal speed. When you come to the shoebox, step over it, not around it and keep walking. Grading: Heidi the lowest category that applies. Step Around Normal Obstacles Query Text: Instructions: Begin walking at normal speed. When you come to the first cone (about 6' away) , walk around the right side of it. When you come to the second cone (6' past first cone), walk around it to the left. Grading: Heidi the lowest category that applies. Steps Mild Impairment Query Text: Instructions: Walk up these stairs as you would at home. At the top, turn around and walk down . Grading: Heidi the lowest category that applies. Scoring Dynamic Gait Index 22 Score Lower Extremity Functional Index Activities Today, do you or would you have any difficulty at all with: a.Any of your usual No difficulty work, housework or school activities b. Your usual A little bit of difficulty hobbies, recreational or sporting activities c. Getting into or No difficulty out of the bath d. Walking between No difficulty rooms e. Putting on your No difficulty shoes or socks f. Squatting A little bit of difficulty g. Lifting an object Moderate difficulty , like a bag of groceries from the floor h. Performing light A little bit of difficulty activities around your home i. Performing heavy Moderate difficulty activities around your home j. Getting into or No difficulty out of a car k. Walking 2 blocks A little bit of difficulty l. Walking a mile Moderate difficulty m. Going up or down A little bit of difficulty 10 stairs (about 1 flight of stairs) n. Standing for 1 Moderate difficulty hour o. Sitting for 1 No difficulty hour p. Running on even A little bit of difficulty ground q. Running on uneven A little bit of difficulty ground r. Making sharp Moderate difficulty turns while running fast s. Hopping A little bit of difficulty t. Rolling over in No difficulty bed LEFI Score Lower Extremity 62 Functional Index Score Miscellaneous Dx PT Eval Objective Objective TU seconds no AD 5xSTS: 8 seconds no UE use DGI: 22 points Romberg: fail uneven sections EO and EC. Tandem stance on uneven: Unable d/t impaired balance Outpatient Therapy Assessment Impairments Problems/ Impaired Strength,Impaired Endurance,Impaired Walking, Impairmments Impaired Stair Climbing,Impaired Incline Stepping, Impaired Stepping on Uneven Surface,Impaired Recreational Activities,Impaired Balance Prognosis Rehab Potential Good Comment Pt presents with impaired BLE strength, dynamic standing balance, and endurance. Pt would benefit from skilled outpatient PT to address deficits and decrease fall risk. PT provided pt with HEP and pt verbalized understanding (10x2: standing marches, 3-way hip with GTB, STS without UE use, tandem stance at counter top 30 x3) Clinical Impression Consistent with Yes Diagnosis PT Patient Goals PT Patient Goals PT Short Term In 4 weeks, pt ludin: Patient Goals 1) Verbalize feeling at least 40% improved in symptoms. 2) Demo at least BLE MMT of 4/5 globally to improve functioning. 3) Improve LEFS to score of 65/80 to improve LE functioning. 4) Tolerate one Mod intensity endurance intervention ( ex: bike) 5) Stand tandem on uneven surface for 10 seconds 6) Verbalize IND with HEP PT Usp Patient In 8 weeks, pt ludin: Goals 1) Verbalize feeling at least 90% improved in strength and balance. 2) Demo BLE MMT of 5/5 globally to improve LE functioning. 3) Improve LEFS to score of 70/80 to improve LE functioning. 4) Perform SLS for 20 seconds without LOB on 2/3 trials to improve functional SLS. 5) Ambulate tandem on uneven surface x10' to improve uneven surface negotiation. 6) Verbalize IND with HEP Outpatient Therapy Plan of Care Treatment Plan May Include Therapeutic Exercise Yes Including Home Exercise Program Neuromuscular Re- Yes education Therapeutic Yes Activities to Return to Previous Functional/Work Level Gait Training Yes ADL/Self Care Yes Education Group Therapy for Yes Medicare Eval/Re-Eval Yes Frequency Times per week 2x Duration Number of Weeks 5-6 weeks Addendums This patient is a No candidate for social or vocational rehab ? Patient/Guardian Yes verbally acknowledges understanding of treatment program and consents to further treatment? Patient/Guardian Yes verbally acknowledges understanding of diagnosis, prognosis and goals for treatment? Eval Complexity PT Charges 65542 - Moderate Complexity Shoulder/Elbow Eval Shoulder Objective Measurements Elbow Objective Measurements PHYSICIAN CERTIFICATION: I certify the specified therapy services for Stephanie Sheron Bang are required, authorized, and reviewed every 30 days.
== END 2025-04-05 23:59 | disposition home or self-care (01) ==
LOC: PT 13:00
PROVIDERS: Visit Provider Internal Medicine
DX: R53.1 Weakness (principal)
CPT/HCPCS: 97110; 97162; 97530

== ENCOUNTER 2025-04-13 14:00 | Outpatient (RCR) | payer MEDICARE, BC, SELFPAY ==
--- NOTE | 2025-04-13 14:51 | HMH.RHREAS ---
Rehab Reassessment Rehab OP Re-assessment Start: 04/10/25 13:10 Freq: Status: Active Protocol: Document 04/13/25 13:52 CLIVE (Rec: 04/13/25 14:49 CLIVE [id number]) E-signed By Lizeth Phan PT Lower Extremity Functional Index Activities Today, do you or would you have any difficulty at all with: a.Any of your usual No difficulty work, housework or school activities b. Your usual A little bit of difficulty hobbies, recreational or sporting activities c. Getting into or No difficulty out of the bath d. Walking between No difficulty rooms e. Putting on your No difficulty shoes or socks f. Squatting A little bit of difficulty g. Lifting an object No difficulty , like a bag of groceries from the floor h. Performing light No difficulty activities around your home i. Performing heavy A little bit of difficulty activities around your home j. Getting into or No difficulty out of a car k. Walking 2 blocks A little bit of difficulty l. Walking a mile A little bit of difficulty m. Going up or down A little bit of difficulty 10 stairs (about 1 flight of stairs) n. Standing for 1 A little bit of difficulty hour o. Sitting for 1 No difficulty hour p. Running on even No difficulty ground q. Running on uneven A little bit of difficulty ground r. Making sharp A little bit of difficulty turns while running fast s. Hopping A little bit of difficulty t. Rolling over in No difficulty bed LEFI Score Lower Extremity 70 Functional Index Score Rehab Re-assessment Subjective Subjective Pt reports she feels > 50 % better since IE. Pt denies any falls in past 30 days. I am more aware of my steps when I am walking Pt reports good compliance to HEP. Pt reports she is ready for discharge as she will continue to perform PT exercises on her own. Objective Objective Notes Romberg: Pass all sections Tandem stance on uneven surface: 20 seconds SLS 20 seconds bilateral BLE MMTs: - Hip FLEX = 4/5 - Hip ABD = 5/5 - Hip ADD = 5/5 - Knee FLEX = 5/5 - Knee EXT = 5/5 LEFS: 70/80 Assessment Progress Assessment Progressing as Expected Assessment Notes This is a reassessment for Stephanie Bang who presents to PT for c/o weakness and balance deficits. Since IE, pt has been regularly attending physical therapy for 1 month. Pt has been seen for 5 treatment sessions which have consisted of interventions to improve strength, endurance, and functional balance. Pt with good attendance to scheduled PT visits and reports adherence to HEP. Since IE, pt with improvements in endurance, BLE strength, and balance. Pt has met all of her STGs and majority of her LTGs. Pt reports she is ready to d/ c. D/c this date d/t met goals. PT Patient Goals PT Short Term In 4 weeks, pt ludin: Patient Goals 1) Verbalize feeling at least 40% improved in symptoms: MET 2) Demo at least BLE MMT of 4/5 globally to improve functioning: MET 3) Improve LEFS to score of 65/80 to improve LE functioning: MET 4) Tolerate one Mod intensity endurance intervention for 10 min (ex: bike): MET 5) Stand tandem on uneven surface for 10 seconds: MET 6) Verbalize IND with HEP: MET PT Therapeutic Consultant Patient In 8 weeks, pt will: Goals 1) Verbalize feeling at least 90% improved in strength and balance: Not met 2) Demo BLE MMT of 5/5 globally to improve LE functioning: Partially MET 3) Improve LEFS to score of 70/80 to improve LE functioning: MET 4) Perform SLS for 20 seconds without LOB on 2/3 trials to improve functional SLS: MET 5) Ambulate tandem on uneven surface x10 feet to improve uneven surface negotiation: MET 6) Verbalize IND with HEP: MET Plan Plan DISCHARGE D/T MET GOALS. Time and Billing Re-Eval Time 10 Re-Eval Billing 0 Units Charge for PT No reassessment? PHYSICIAN CERTIFICATION: I certify the specified therapy services for Stephanie Sheron Bang are required, authorized, and reviewed every 30 days.
== END 2025-04-13 23:59 | disposition home or self-care (01) ==
LOC: PT 14:00
PROVIDERS: PCP Internal Medicine; Visit Provider Internal Medicine
DX: R53.1 Weakness (principal); W19.XXXA Unspecified fall, initial encounter
CPT/HCPCS: 97110; 97530

== ENCOUNTER 2025-04-21 15:00 | Outpatient (CLI) | payer MEDICARE, BC, SELFPAY ==
[2025-04-21 16:13] LABS: Hematocrit 43.5 % (37.0-47.0); Hemoglobin 14.5 g/dL (12.2-16.2); Immature Granulocytes % 0.1 %; Mean Corpuscular HGB Conc 33.3 g/dL (31.8-35.4); Mean Corpuscular Hemoglobin 31.5 pg (27.0-31.2); Mean Corpuscular Volume 94.4 fl (81-99); Nucleated Red Blood Cells % 0 %; Platelet Count 259 K/mm3 (142-424); Red Blood Count 4.61 M/mm3 (4.20-5.40); Red Cell Distribution Width-SD 44.2 fL; White Blood Count 8.1 K/mm3 (4.8-10.8)
[2025-04-21 16:42] LABS: Alanine Aminotransferase 23 U/L (12-78); Albumin Level 4.6 g/dl (3.5-5.0); Albumin/Globulin Ratio 1.8 (1.1-1.8); Alkaline Phosphatase 66 U/L (38-126); Anion Gap 16.1 mEq/L (5-15); Aspartate Amino Transferase 32 U/L (14-36); Bilirubin,Total 1.5 mg/dl (0.2-1.3); Blood Urea Nitrogen 16 mg/dl (7-17); Calcium 10.2 mg/dl (8.4-10.2); Carbon Dioxide 25 mmol/L (22.0-30.0); Chloride 104 mmol/L (98-107); Creatinine,Serum 1.10 mg/dl (0.52-1.04); Estimated Glomerular Filt Rate 48 ml/min (>60); GFR (African American) 58 ML/MIN (>60); Globulin 2.5 g/dL (1.3-3.2); Glucose 120 mg/dl (74-100); Potassium 4.1 mmoL/L (3.5-5.1); Sodium 141 mmol/L (136-145); Total Protein,Serum 7.1 g/dl (6.3-8.2)
== END 2025-04-21 23:59 | disposition home or self-care (01) ==
LOC: LAB 15:01
PROVIDERS: PCP Internal Medicine; Visit Provider Obstetrics & Gynecology
DX: N95.1 Menopausal and female climacteric states (principal); E53.8 Deficiency of other specified B group vitamins
CPT/HCPCS: 36415; 80053; 85025